=== PATIENT | male | born 1940 | race Caucasian/White ===

== ENCOUNTER 2018-05-10 07:53 | Inpatient (IN) | payer OTHER ==
--- OUTSIDE RECORDS SUMMARY | 2018-05-10 07:57 | XMS REPORT ---
:1940 Author Organization [employer] Care Team Providers Name Role Phone MejiaAroldo Provider Role Unavailable Allergies, Adverse Reactions, Alerts Substance Reaction Event Type Iodine Info Not Available Drug Allergy WHEAT Info Not Available Non Drug Allergy GLUTEN Info Not Available Non Drug Allergy Problems Problem Type Condition Code Onset Dates Condition Status Problem Pain in joint of right knee M25.561 Active Problem Right sided sciatica M54.31 Active Assessment Pain in joint of right knee M25.561 Active Assessment Right sided sciatica M54.31 Active Medications Medication Code System Code Instructions Start Date End Date Status Dosage Aspir-81 [facility] [id number] Active not defined -26 Results No Known Results Summary Purpose eClinicalWyldfire Submission
--- OUTSIDE RECORDS SUMMARY | 2018-05-10 07:57 | XMS REPORT | Clinical Summary ---
:1940 Author Organization [facility] Address [address] [place] [address] Care Team Providers Name Role Phone John Worrell MD Primary Care Provider Allergies Active Allergy Reactions Severity Noted Date Comments Iodine Hives 04/16/2018 Medications Medication Sig Dispensed Refills Start Date End Date Status aspirin (ECOTRIN) 81 Take 81 mg by 0 Active MG enteric coated mouth daily. tablet L-GLUTAMINE ORAL Take by mouth. 0 Active enzymes,digestive Take by mouth. 0 Active (ENZYME DIGEST ORAL) cetirizine (ZyrTEC) 10 Take 10 mg by 0 Active MG tablet mouth daily as needed. tamsulosin (FLOMAX) Take 1 capsule 90 capsule 3 04/16/2018 Active 0.4 mg capsule (0.4 mg total) by mouth daily. multivitamin with Take 1 tablet by 0 Active minerals tablet mouth daily. Active Problems Problem Noted Date History of kidney stones 04/16/2018 Encounters Date Type Specialty Care Team Description 05/07/2018 Anesthesia Event Urology King Wolf APRN 05/07/2018 Pre-Admit Testing Pre-Admission Mate[facility] Pre-op testing Appointment Testing MD Katrin (Primary Dx) 05/07/2018 Procedure visit Urology RON Galindo with obstruction/lower urinary tract symptoms (Primary Dx); MD Katrin H/O urethral stricture 05/07/2018 Hospital Encounter Radiology Maged Galindo cardiovascular MD Katrin exam 05/07/2018 Transcribe Orders Access Maged Galindo cardiovascular MD Katrin exam (Primary Dx) 05/04/2018 Telephone Urology Katrin Galindo MD 04/16/2018 Office Visit Urology Mateo H/O urethral stricture (Primary Dx) ; MD Katrin 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 Never 04/16/2018 How many drinks containing alcohol do you have on a typical Not asked day when you are drinking? How often do you have six or more drinks on one occasion? Not asked Sex Assigned at Date Recorded Not on file Job Start Date Occupation Industry Not on file Not on file Not on file Travel History Travel Start Travel End No recent travel history available. Last Filed Vital Signs Vital Sign Reading Time Taken Blood Pressure 175/81 05/07/2018 4:54 PM CDT Pulse 73 05/07/2018 4:54 PM CDT Temperature 35.9 C (96.7 F) 05/07/2018 4:54 PM CDT Respiratory Rate 20 05/07/2018 4:54 PM CDT Oxygen Saturation 98% 05/07/2018 4:54 PM CDT Inhaled Oxygen Concentration - - Weight 80.2 kg (176 lb 14.4 oz) 05/07/2018 4:54 PM CDT Height 170.2 cm (5' 7") 05/07/2018 4:54 PM CDT Body Mass Index 27.71 05/07/2018 4:54 PM CDT Plan of Treatment Health Maintenance Due Date Last Done Comments SHINGLES VACCINES (#1) 01/12/1988 65+ PNEUMOCOCCAL VACCINE (1 of 2 - PCV13) 2003 PNEUMOCOCCAL POLYSACCHARIDE VACCINE AGE 65 AND OVER 2003 INFLUENZA VACCINE 09/20/2017 Procedures Procedure Name Priority Date/Time Associated Diagnosis Comments XR CHEST 2 VW Routine 05/07/2018 5:54 Preop cardiovascular Results for this PM CDT exam procedure are in the results section. ECG PRE/POST OP Routine 05/07/2018 5:32 Pre-op testing Results for this PM CDT procedure are in the results section. ESTIMATED GFR Routine 05/07/2018 5:15 Results for this PM CDT procedure are in the results section. COMPREHENSIVE Routine 05/07/2018 5:15 Pre-op testing Results for this METABOLIC PANEL PM CDT procedure are in the results section. CBC HEMOGRAM Routine 05/07/2018 5:15 Pre-op testing Results for this PM CDT procedure are in the results section. PROTHROMBIN TIME WITH Routine 05/07/2018 5:15 Pre-op testing Results for this INR PM CDT procedure are in the results section. PARTIAL THROMBOPLASTIN Routine 05/07/2018 5:15 Pre-op testing Results for this TIME (PTT) PM CDT procedure are in the results section. POC URINALYSIS Routine 05/07/2018 1:30 BPH with Results for this DIPSTICK PM CDT obstruction/lower procedure are in urinary tract the results symptoms section. POC URINALYSIS Routine 04/16/2018 10:39 H/O urethral Results for this DIPSTICK AM CERTIFIED PEER SPECIALIST stricture procedure are in the results section. [id number] Routine 04/16/2018 10:39 H/O urethral Results for this AM CERTIFIED PEER SPECIALIST stricture procedure are in the results section. after 05/09/2017 Results XR Chest 2 Vw (05/07/2018 5:54 PM CDT) Narrative Performed At [facility]AMIN[facility] CLINICAL [facility]:Z01.810 Encounter for preprocedural cardiovascular examination, PREOP COMPARISON:None. TECHNIQUE: Frontal and lateral views of the chest obtained. IMPRESSION: Patient is status-post median sternotomy. Heart is normal in size, and there is atherosclerosis of the aorta. Foci of linear scarring in the lung bases. Lungs are otherwise clear. No pleural effusion or pneumothorax. Degenerative changes in the spine and chronic bilateral rib fractures. [id number] Procedure Note Hm Interface, Radiology Results Incoming - 05/07/2018 6:09 PM CDT EXAMINATION: XR CHEST 2 VW CLINICAL HISTORY: Z01.810 Encounter for preprocedural cardiovascular examination, PREOP COMPARISON: None. TECHNIQUE: Frontal and lateral views of the chest obtained. IMPRESSION: Patient is status-post median sternotomy. Heart is normal in size, and there is atherosclerosis of the aorta. Foci of linear scarring in the lung bases. Lungs are otherwise clear. No pleural effusion or pneumothorax. Degenerative changes in the spine and chronic bilateral rib fractures. [id number] Performing Organization Address City/State/Zipcode Phone Number [facility] [address] [place] [address] ECG Pre/Post Op (05/07/2018 5:32 PM CDT) Ventricular rate 68 [facility] Atrial rate 68 [facility] UT interval 154 [facility] QRSD interval 154 [facility] QT interval 450 [facility] QTC interval 478 [facility] P axis 1 23 [facility] QRS axis 1 -51 [facility] T wave axis -10 [facility] EKG impression Normal sinus rhythm-Right bundle branch block-Left anterior fascicular block-^^^ Bifascicular block ^^^-Voltage criteria for left ventricular hypertrophy-Inferior infarct , age undetermined-Anterolateral infarct , age undetermined-Abnormal ECG-No [facility] previous ECGs available-Electronically Signed By Loco Carrington MD ([id number]) on 05/08 5:54:42 PM Narrative Performed At Performing Organization Address City/[facility] Phone Number [facility] [address] [place] [phone] Estimated GFR (05/07/2018 5:15 PM CDT) Estimated GFR 60 mL/min/1.73 m2 [facility] Comment: HOSPITAL CatergoryUnitsInterpretation G1 >=90 Normal or high G2 60-89Mildly decreased K2p80-85Lmzmzh to moderately decreased K9m08-16Kgtsxwhaah to severely decreased G4 15-29Severely decreased G5 <15Kidney failure The eGFR was calculated using the Chronic Kidney Disease Epidemiology Collaboration (CKD-EPI) equation. Interpretation is based on recommendations of the National Kidney Foundation-Kidney Disease Outcomes Quality Initiative (NKF-KDOQI) published in 2014. Specimen Plasma specimen Performing Organization Address City/[facility] Phone Number [facility] DEPARTMENT OF PATHOLOGY AND [address] [place] [phone] [address] Partial thromboplastin time, activated (05/07/2018 5:15 PM CDT) PTT 30.5 23.0 - 36.0 sec [facility] Comment: PTT therapeutic range for unfractionated heparin is 61.0-112.0 seconds which corresponds to Anti-Xa 0.3-0.7 U/ml. Specimen Blood Performing Organization Address City/[facility]/Zipcode Phone Number [facility] DEPARTMENT OF PATHOLOGY AND [address] [place] [phone] [address] Prothrombin time with INR (05/07/2018 5:15 PM CDT) Prothrombin time 12.4 11.5 - 14.5 sec [facility] INR 1.0 [facility] Comment: HOSPITAL The International Normalized Ratio (INR) is a therapeutic monitoring tool for patients who are stable on oral anticoagulant therapy. An INR of 2.0-3.0 is suggested for deep vein thrombosis/pulmonary embolism. Specimen Blood Performing Organization Address City/[facility] Phone Number [facility] DEPARTMENT OF PATHOLOGY AND [address] [place] [address] CBC hemogram (05/07/2018 5:15 PM CDT) WBC 12.51 (H) 4.50 - 11.00 k/uL [facility] RBC 5.07 4.40 - 6.00 m/uL [facility] HGB 16.2 14.0 - 18.0 g/dL [facility] HCT 50.1 41.0 - 51.0 % [facility] MCV 98.8 82.0 - 100.0 fL [facility] MCH 32.0 27.0 - 34.0 pg [facility] MCHC 32.3 31.0 - 37.0 g/dL [facility] RDW - SD 49.0 37.0 - 55.0 fL [facility] MPV 10.2 8.8 - 13.2 fL [facility] Platelet count 343 150 - 400 k/uL [facility] Nucleated RBC 0.00 /100 WBC [facility] Specimen Blood Performing Organization Address City/[facility] Phone Number [facility] DEPARTMENT OF PATHOLOGY AND [address] [place] [phone] Comprehensive metabolic panel (05/07/2018 5:15 PM CDT) Sodium 141 135 - 148 mEq/L [facility] Potassium 4.3 3.5 - 5.0 mEq/L [facility] Chloride 100 98 - 112 mEq/L [facility] CO2 25 24 - 31 mEq/L [facility] Anion gap 16@ANIO (H) 7 - 15 mEq/L [facility] BUN 17 8 - 23 mg/dL [facility] Creatinine 1.15 0.70 - 1.20 mg/dL [facility] Glucose 142 (H) 65 - 99 mg/dL [facility] Calcium 9.5 8.8 - 10.2 mg/dL [facility] Protein 7.7 6.3 - 8.3 g/dL [facility] Comment: HOSPITAL Willis 4.6-7.0 g/dL 1 week 4.4-7.6 g/dL 7 months-1year5.1-7.3 g/dL 1-2 years5.6-7.5 g/dL >3 years6.0-8.0 g/dL 18-150 6.3-8.3 g/dL Albumin 3.9 3.5 - 5.0 g/dL [facility] A/G ratio 1.0 0.7 - 3.8 [facility] Alkaline phosphatase 192 (H) 40 - 129 U/L [facility] AST 364 (H) 10 - 50 U/L [facility] ALT 198 (H) 5 - 50 U/L [facility] Total bilirubin 1.2 0.0 - 1.2 mg/dL [facility] Specimen Plasma specimen Performing Organization Address City/State/Zipcode Phone Number [facility] DEPARTMENT OF PATHOLOGY AND [address] [place] [phone] [facility] [address] [address] POC urinalysis dipstick (05/07/2018 1:30 PM CDT)Only the most recent of2 resultswithin the time period is included. Color urine, POC Yellow Clarity urine, POC Clear Glucose urine, POC Negative Negative Bilirubin urine, POC Negative Negative Ketones urine, POC Negative Negative Specific gravity urine, POC 1.015 1.005 - 1.030 Blood urine, POC Trace (A) Negative pH urine, POC 7.5 5.0, 5.5, 6.0, 6.5, 7.0, 7.5, 8.0, 8.5 Protein urine, POC Negative Negative Urobilinogen urine, POC <2.0 <2.0 Nitrite urine, POC Negative Negative Leukocyte esterase urine, POC Trace (A) Negative Specimen Urine POC BLADDER SCAN/PVR (04/16/2018 10:39 AM CERTIFIED PEER SPECIALIST) Volume 16mlComment: pvr Specimen Urine after 05/09/2017 Insurance Payer Benefit Plan / Group Subscriber ID Type Phone Address AETNA MEDICARE AETNA MEDICARE HMO/PPO [facility] xxxxxxxx HMO ([place]) [place] [address] Advance Directives Patient has advance care planning documents on file. For more information, please contact:Kennedy [phone] [place] [address]
--- NOTE | 2018-05-10 08:43 | RAD REPORT ---
EXAM DESCRIPTION: RAD - Chest Single View - 05/10/2018 8:34 am CLINICAL HISTORY: weakness Chest pain. COMPARISON: Chest Pa And Lat (2 Views) dated 02/12/2016; CHEST SINGLE VIEW dated 07/31/2012 FINDINGS: Portable technique limits examination quality. The lungs are grossly clear. Small left pleural effusion likely present. Cardiac size is upper limit normal with sternotomy wires present.
[2018-05-10 08:53] LABS: Absolute Lymphocytes (CBC) 0.8 K/uL (0.7-4.9); Absolute Neutrophil 22.5 K/uL (1.8-8.0); Basophils % 0.3 % (0-1.3); Hematocrit 44.6 % (39.6-49.0); Lymphocytes % 3.1 % (15.3-44.8); MPV 9.3 fL (7.6-11.3); RBC Red Blood Cell Count 4.63 M/uL (4.33-5.43)
--- NOTE | 2018-05-10 09:03 | RAD REPORT ---
EXAM DESCRIPTION: RAD - Abdomen 1 View (KUB) - 05/10/2018 8:56 am CLINICAL HISTORY: Gas bubble Pain COMPARISON: No comparisons FINDINGS: The bowel gas pattern is non-obstructive. No evidence of free air or pneumatosis. No suspi cious calcifications. No significant bony findings. IMPRESSION: Negative examination.
[2018-05-10 09:04] LABS: Protime INR 1.15
[2018-05-10 09:06] LABS: ALT/SGPT 258 U/L (12-78); AST/SGOT 85 U/L (15-37); Albumin 3.1 g/dL (3.4-5.0); Alkaline Phosphatase 193 U/L (45-117); BUN Blood Urea Nitrogen 14 mg/dL (7-18); Bicarbonate 24 mmol/L (21-32); Bilirubin Direct 0.3 mg/dL (0-0.2); Bilirubin Total 0.9 mg/dL (0.2-1.0); Glucose Level 124 mg/dL (74-106); NT PRO-BNP 1410 pg/mL (<450); Potassium 4.1 mmol/L (3.5-5.1); Protein, Total 7.4 g/dL (6.4-8.2); Sodium Level 136 mmol/L (136-145); Troponin (Emerg Dept Use Only) < 0.02 ng/mL (0.0-0.045)
[2018-05-10 09:36] LABS: Blood Morphology Comment NOT SEEN (NOT SEEN); Platelet Estimate ADEQ; Urine White Blood Cell Casts OK
[2018-05-10] MEDS ORDERED: ONDANSETRON 4 MG/2 ML VIAL ONE (10:14)
[2018-05-10] MEDS ORDERED: PIPER/TAZO/NS 3.375gm 3.375 GM/100 ML BAG ONE (10:14)
[2018-05-10] MEDS ORDERED: MORPHINE 2 MG/ML SYR ONE ×2 (10:14→13:05)
--- NOTE | 2018-05-10 10:34 | RAD REPORT ---
EXAM DESCRIPTION: CT - Abdomen Pelvis Wo Contrast - 05/10/2018 10:22 am CLINICAL HISTORY: Abdominal pain, epigastric pain, weakness, vomiting COMPARISON: CT January 2008 TECHNIQUE: Axial [address] imaging of the abdomen and pelvis was performed without IV contrast. No IV contrast was given because of allergy, abnormal renal function, patient refusal or physician re quest. Oral contrast was given. All CT scans are performed using dose optimization technique as appropriate and may include automated exposure control or mA/KV adjustment according to patient size. FINDINGS: No suspicious findings in the lung bases. Scarring changes are present. No cardiomegaly or pericardial effusion. The liver and spleen show no new or suspicious findings for a noncontrast study. Gallbladder is diste nded. Gallstones can be occult on CT imaging. No biliary tree dilatation. No pancreatic mass identifi ed. There is trace amount of stranding in the peripancreatic fat. A mild pancreatitis would be a cons ideration in this patient with epigastric pain. No hydronephrosis or suspicious renal mass. Nonspecific perinephric stranding is present not regarded as significant. No significant adrenal finding. Isodense renal masses and pyelonephritis cannot be e xcluded in the absence of IV contrast. Partially filled urinary bladder shows no suspicious finding. Gastric assessment is limited given the absence of IV and oral contrast. No gross gastric abnormality identifiable. Moderate stool volume is present in the colon. There is no appendicitis. Diverticulosi s present without diverticulitis. No acute GI process seen. No free air, free fluid or inflammatory s tranding. No hernia, mass or bulky lymphadenopathy. Disc and bony degenerative changes are present without pathologic change. Dense arterial tree calcifi cations are present. IMPRESSION: Minimal stranding is seen in the peripancreatic fat. Correlation is needed with any clin ical findings or laboratory findings for mild pancreatitis. No pancreatic mass. Distended gallbladder without biliary tree dilatation. Gallstones can be occult. Limited assessment of the stomach. No gross abnormality seen. Full assessment is limited is the absence of IV contrast.
--- NOTE | 2018-05-10 10:35 | RAD REPORT ---
EXAM DESCRIPTION: CT - Head Brain Wo Cont - 05/10/2018 10:25 am CLINICAL HISTORY: Syncope, fall, head trauma COMPARISON: None. TECHNIQUE: Axial 5 mm thick images of the head were obtained without IV contrast. All CT scans are performed using dose optimization technique as appropriate and may include automated exposure control or mA/KV adjustment according to patient size. FINDINGS: No intracranial hemorrhage, mass, edema or shift of mid-line structures. No acute infarcti on changes seen. Atrophy and chronic ischemic changes are present. Ventricles are in proportion to vo lume loss. Physiologic and arterial calcifications are present. Mastoid air cells and visualized portions of the paranasal sinuses are clear. No acute bony findings. IMPRESSION: Negative non-contrast CT head examination for acute finding. Atrophy and chronic ischem ic changes are present.
--- NOTE | 2018-05-10 10:44 | EKG ---
Test Date: 2018-05-10 Test Time: 08:03:27 Vocational Services Specialist: PAMELA MEASUREMENT RESULTS: Intervals: Rate: 85 ME: 142 QRSD: 128 QT: 406 QTc: 483 Cecil: P: 61 ME: 142 QRS: -49 T: 67 INTERPRETIVE STATEMENTS: Normal sinus rhythm Right bundle branch block Left anterior fascicular block Bifascicular block Voltage criteria for left ventricular hypertrophy Inferior infarct, age undetermined Anterolateral infarct, age undetermined Abnormal ECG Compared to ECG 08/01/2012 10:57:18 Right bundle-branch block now present Left anterior fascicular block now present Bifascicular block now present Left-axis deviation no longer present Early repolarization no longer present Myocardial infarct finding still present Electronically Signed On 05-10-18 10:43:21 CDT by Andre Duran
[2018-05-10] MEDS ORDERED: KETOROLAC 30 MG/ML INJ ONE (11:29)
[2018-05-10] MEDS ORDERED: metroNIDAZOLE 500 MG TABLET ONE (11:29)
--- NOTE | 2018-05-10 12:12 | ER ---
Nurse's Notes [facility] Name: Carmelo Davis Age: 78 yrs Sex: Male : 1940 Arrival Date: 05/10/2018 Time: 08:03 Bed 5 Private MD: Diagnosis: Abdominal and pelvic pain;Acute pancreatitis, unspecified Presentation: 05/10 08:04 Presenting complaint: Patient states: epigastric pain, feels like a gas bubble, and ch weakness for the past 5 days. states "flu like symptoms". denies congestion, cough, nasal drainage. reports body aches, lower back, vomiting, and states today he called 911 because he was to weak to get out of his bath tub. states this happened in February but only lasted 5 days, today feeling worse. Transition of care: patient was not received from another setting of care. Onset of symptoms was May 05, 2018. Risk Assessment: Do you want to hurt yourself or someone else? Patient reports no desire to harm self or others. Initial Sepsis Screen: Does the patient meet any 2 criteria? No. Patient's initial sepsis screen is negative. Does the patient have a suspected source of infection? No. Patient's initial sepsis screen is negative. Care prior to arrival: None. 08:04 Method Of Arrival: EMS: [facility] 08:04 Acuity: RAVEN 3 Triage Assessment: 08:10 The onset of the patients symptoms was more than six hours ago. The onset of the patients symptoms was May 05, 2018 at 08:00. General: Appears in no apparent distress. comfortable, Behavior is calm, cooperative, appropriate for age. Pain: Complains of pain in epigastric area, right upper quadrant and left upper quadrant Pain currently is 10 out of 10 on a pain scale. Neuro: Level of Consciousness is awake, alert, obeys commands, Oriented to person, place, time, situation, Plastering Supervisor are equal bilaterally Moves all extremities. Weakness Speech is normal, Facial symmetry appears normal, Facial symmetry: tongue is midline, Reports weakness generalized weakness, states he could not get out of bed today. Cardiovascular: Denies chest pain. Respiratory: Airway is patent Respiratory effort is even, unlabored, Breath sounds are clear. GI: Bowel sounds present X 4 quads. Reports upper abdominal pain, bloating, gaseousness, nausea, vomiting. : No signs and/or symptoms were reported regarding the genitourinary system. Derm: Skin is intact, Skin is pale, Skin temperature is warm. Musculoskeletal: Reports feeling generalized weakness. Stroke Activation: Symptom onset > 6 hours Physician: Stroke Attending; Name: ; Notified At: ; Arrived At: Physician: Chief Stroke Resident; Name: ; Notified At: ; Arrived At: Physician: Stroke Resident; Name: ; Notified At: ; Arrived At: Physician: ED Attending; Name: ; Notified At: ; Arrived At: Physician: ED Resident; Name: ; Notified At: ; Arrived At: 08:04 NA ch Historical: - Allergies: 08:10 Iodine; ch 08:10 Gluten Protein; ch 08:10 CORN CONTAINING PRODUCTS; ch 08:10 Milk/dairy products; ch 08:10 Wheat/glutens; ch - Home Meds: 08:10 aspirin 81 mg Oral chew 1 tab once daily [Active]; ch - PMHx: 08:10 Myocardial infarction; x2; ch - PSHx: 08:10 cardiac stents, then single bypass; ch - Immunization history:: Adult Immunizations up to date, Flu vaccine is up to date. - Social history:: Smoking status: Patient/guardian denies using tobacco, Patient/guardian denies using alcohol, street drugs. - Ebola Screening: : Patient negative for fever greater than or equal to 101.5 degrees Fahrenheit, and additional compatible Ebola Virus Disease symptoms Patient denies exposure to infectious person Patient denies travel to an Ebola-affected area in the 21 days before illness onset No symptoms or risks identified at this time. Screenin:15 Abuse screen: Denies threats or abuse. Denies injuries from another. Nutritional ch screening: No deficits noted. Tuberculosis screening: No symptoms or risk factors identified. Fall Risk None identified. Assessment: 08:15 Reassessment: Patient appears in no apparent distress at this time. Patient and/or ch family updated on plan of care and expected duration. Pain level reassessed. Patient is alert, oriented x 3, equal unlabored respirations, skin warm/dry/pink. 08:25 Reassessment: XRAY at bedside obtaining image. ss 08:55 Reassessment: Patient appears in no apparent distress at this time. No changes from previously documented assessment. Patient and/or family updated on plan of care and expected duration. Pain level reassessed. Patient is alert, oriented x 3, equal unlabored respirations, skin warm/dry/pink. 09:18 Reassessment: Patient appears in no apparent distress at this time. pt states he does ch not need to urinate right now. pt verb understanding of wait for results. pt states he does not need to urinate right now. will attempt to get a sample in a few min. 09:50 Reassessment: Patient appears in no apparent distress at this time. No changes from previously documented assessment. Patient and/or family updated on plan of care and expected duration. Pain level reassessed. Patient is alert, oriented x 3, equal unlabored respirations, skin warm/dry/pink. pt requests pain medication, erp notified. 10:50 Reassessment: Patient appears in no apparent distress at this time. Patient and/or ch family updated on plan of care and expected duration. Pain level reassessed. Patient is alert, oriented x 3, equal unlabored respirations, skin warm/dry/pink. Patient states feeling better. 11:52 Reassessment: Patient appears in no apparent distress at this time. Patient and/or ch family updated on plan of care and expected duration. Pain level reassessed. Patient is alert, oriented x 3, equal unlabored respirations, skin warm/dry/pink. pt awaiting results, no s/s of distress. 12:54 Reassessment: Patient appears in no apparent distress at this time. Patient and/or ch family updated on plan of care and expected duration. Pain level reassessed. Patient is alert, oriented x 3, equal unlabored respirations, skin warm/dry/pink. pt states he is having more pain, pt verb understanding of admission. erp notified of pt wanting his results, and new orders obtained for pain medication. 13:30 Reassessment: pt remains off the unit in radiology prior to admission to room 407. Vital Signs: 08:14 BP 131 / 71; Pulse 98; Resp 22; Temp 98.6; Pulse Ox 96% on R/A; Weight 77.11 kg; Height 5 ft. 7 in. (170.18 cm); Pain 10/10; 08:55 BP 138 / 74; Pulse 86; Resp 16; Pulse Ox 99% on R/A; Pain 9/10; ch 11:09 BP 124 / 68; Pulse 100; Resp 21; Temp 99; Pulse Ox 95% on R/A; Pain 7/10; ch 11:52 BP 139 / 76; Pulse 92; Resp 22; Pulse Ox 95% on R/A; Pain 6/10; ch 12:54 BP 125 / 64; Pulse 96; Resp 21; Pulse Ox 96% on R/A; Pain 8/10; ch 13:00 BP 125 / 64; Pulse 93; Resp 18; Temp 99.4(TE); Pulse Ox 95% on R/A; Pain 9/10; sg 08:14 Body Mass Index 26.63 (77.11 kg, 170.18 cm) ED Course: 08:03 Patient arrived in ED. ch 08:04 Nicko Ruiz MD is Attending Physician. kdr 08:08 Triage completed. ch 08:10 Inserted saline lock: 20 gauge in right antecubital area, using aseptic technique. ss Blood collected. 08:14 Arm band placed on left wrist. Patient placed in an exam room, on a stretcher, on pulse oximetry. 08:15 No apparent distress. ch 08:15 Patient has correct armband on for positive identification. Bed in low position. Call light in reach. Side rails up X 1. Pulse ox on. NIBP on. Warm blanket given. 08:15 No provider procedures requiring assistance completed. ch 08:33 X-ray completed. Portable x-ray completed in exam room. Patient tolerated procedure sw well. 08:34 XRAY Chest (1 view) In Process Unspecified. EDMS 08:54 X-ray completed. Portable x-ray completed in exam room. Patient tolerated procedure jb2 well. Note: . 08:54 Estelita Abdullahi, RN is Primary Nurse. ch 08:56 Abdomen 1 View (KUB) XRAY In Process Unspecified. EDMS 09:15 No apparent distress. Appears to be sleeping. ch 10:17 CT completed. Patient tolerated procedure well. Patient moved to CT via stretcher. sj Patient moved back from CT. 10:23 Abdomen In Process Unspecified. EDMS 10:27 Head Brain Wo Cont In Process Unspecified. EDMS 10:40 Missed attempt(s): 20 gauge in left antecubital area. Bleeding controlled, band aid dh3 applied, catheter tip intact. 10:45 First set of blood cultures drawn by wi. Inserted saline lock: 22 gauge in left hand, dh3 using aseptic technique. Blood collected. 12:10 John Worrell MD is Hospitalizing Provider. kdr 12:54 Report given to Amor. 12:54 Patient admitted, IV remains in place. ch 12:59 Amor Rosas, RN is Primary Nurse. sg 13:28 Patient moved to MRI via wheelchair. 14:00 Repeat lab(s) drawn. by wi, sent to lab. LAC. sg Administered Medications: 10:10 Drug: morphine 2 mg Route: IVP; Site: right antecubital; ch 11:57 Follow up: Response: No adverse reaction ch 11:08 Drug: Zosyn 3.375 grams Route: IVPB; Infused Over: 60 mins; Site: left hand; ch 11:56 Follow up: IV Status: Completed infusion; IV Intake: 100ml ch 11:56 Drug: Flagyl 500 mg Route: PO; ch 11:57 Follow up: Response: No adverse reaction ch 12:50 Drug: morphine 2 mg Route: IVP; Site: right antecubital; sg 13:30 Follow up: Response: No adverse reaction; Pain is decreased sg 14:31 Not Given (Patient Refused): Zofran 4 mg IVP once; over 2 minutes sg Intake: 11:56 IV: 100ml; Total: 100ml. Outcome: 12:11 Decision to Hospitalize by Provider. kdr 14:33 Admitted to Med/surg accompanied by tech, via wheelchair, room 407, with chart, Report sg called to Edie ELIAS 14:33 Condition: stable 14:33 Instructed on the need for admit, safety practices, Demonstrated understanding of instructions. 14:36 Patient left the ED. snw Signatures: Dispatcher [employer] EDMS Estelita Abdullahi, RN RN Amor Rosas, RN RN Nicko Ruiz MD MD kdr Therrien, Shelly, [employer]IL[employer] PLANT AND FIELD OPERATOR-C [employer] FIELD OPERATOR-Csnw Dave Landa Lorena lc Jones, Susan sj Smirch, Shelby, RN RN Mindy Mccoy Deanna [facility]
--- NOTE | 2018-05-10 12:12 | EDPHYS ---
Physician Documentation [facility] Name: Carmelo Davis Age: 78 yrs Sex: Male : 1940 Arrival Date: 05/10/2018 Time: 08:03 Bed 5 Private MD: ED Physician Nicko Ruiz HPI: 05/10 08:41 This 78 yrs old Male presents to ER via EMS with complaints of Weakness. kdr 08:41 The patient states that he has been feeling weak and that he may have the flu. States kdr that he also has a "gas" bubble in his upper abdomen. He has no c/o pain aside from general myalgias from feeling like he has the flu. He states that he had similar symptoms in February with the "flu" feeling and the epigastric gas bubble.. Onset: The symptoms/episode began/occurred gradually, 2 day(s) ago. Severity of symptoms: At their worst the symptoms were mild in the emergency department the symptoms are unchanged. The patient has experienced similar episodes in the past, a few times. The patient has not recently seen a physician. Historical: - Allergies: 08:10 Iodine; ch 08:10 Gluten Protein; ch 08:10 CORN CONTAINING PRODUCTS; ch 08:10 Milk/dairy products; ch 08:10 Wheat/glutens; ch - Home Meds: 08:10 aspirin 81 mg Oral chew 1 tab once daily [Active]; ch - PMHx: 08:10 Myocardial infarction; x2; ch - PSHx: 08:10 cardiac stents, then single bypass; ch - Immunization history:: Adult Immunizations up to date, Flu vaccine is up to date. - Social history:: Smoking status: Patient/guardian denies using tobacco, Patient/guardian denies using alcohol, street drugs. - Ebola Screening: : Patient negative for fever greater than or equal to 101.5 degrees Fahrenheit, and additional compatible Ebola Virus Disease symptoms Patient denies exposure to infectious person Patient denies travel to an Ebola-affected area in the 21 days before illness onset No symptoms or risks identified at this time. ROS: 08:41 Constitutional: Negative for fever and weight loss he does report chills yesterday kdr Eyes: Negative for injury, pain, redness, and discharge, ENT: Negative for injury, pain, and discharge, Neck: Negative for injury, pain, and swelling, Cardiovascular: Negative for chest pain, palpitations, and edema, Respiratory: Negative for shortness of breath, cough, wheezing, and pleuritic chest pain, Back: Negative for injury and pain, : Negative for injury, bleeding, discharge, and swelling, MS/Extremity: Negative for injury and deformity, Skin: Negative for injury, rash, and discoloration, Neuro: Negative for headache, weakness, numbness, tingling, and seizure activity. Psych: Negative for depression, anxiety, suicide ideation, homicidal ideation, and hallucinations, Allergy/Immunology: Negative for hives, rash, and allergies, Endocrine: Negative for neck swelling, polydipsia, polyuria, polyphagia, and marked weight changes, Hematologic/Lymphatic: Negative for swollen nodes, abnormal bleeding, and unusual bruising. 08:41 Abdomen/GI: Positive for abdominal distension, Epigastric gas bubble. Exam: 08:41 Constitutional: This is a well developed, well nourished patient who is awake, alert, kdr and in no acute distress. Head/Face: Normocephalic, atraumatic. Eyes: Pupils equal round and reactive to light, extra-ocular motions intact. Lids and lashes normal. Conjunctiva and sclera are non-icteric and not injected. Cornea within normal limits. Periorbital areas with no swelling, redness, or edema. Neck: Trachea midline, no thyromegaly or masses palpated, and no cervical lymphadenopathy. Supple, full range of motion without nuchal rigidity, or vertebral point tenderness. No Meningismus. Chest/axilla: Normal chest wall appearance and motion. Nontender with no deformity. No lesions are appreciated. Cardiovascular: Regular rate and rhythm with a normal S1 and S2. No gallops, murmurs, or rubs. Normal PMI, no JVD. No pulse deficits. Respiratory: Lungs have equal breath sounds bilaterally, clear to auscultation and percussion. No rales, rhonchi or wheezes noted. No increased work of breathing, no retractions or nasal flaring. Abdomen/GI: Soft, non-tender, with normal bowel sounds. No distension or tympany. No guarding or rebound. No evidence of tenderness throughout. Back: No spinal tenderness. No costovertebral tenderness. Full range of motion. Skin: Warm, dry with normal turgor. Normal color with no rashes, no lesions, and no evidence of cellulitis. MS/ Extremity: Pulses equal, no cyanosis. Neurovascular intact. Full, normal range of motion. Neuro: Awake and alert, GCS 15, oriented to person, place, time, and situation. Cranial nerves II-XII grossly intact. Motor strength 5/5 in all extremities. Sensory grossly intact. Cerebellar exam normal. Normal gait. Psych: Awake, alert, with orientation to person, place and time. Behavior, mood, and affect are within normal limits. Vital Signs: 08:14 BP 131 / 71; Pulse 98; Resp 22; Temp 98.6; Pulse Ox 96% on R/A; Weight 77.11 kg; Height ch 5 ft. 7 in. (170.18 cm); Pain 10/10; 08:55 BP 138 / 74; Pulse 86; Resp 16; Pulse Ox 99% on R/A; Pain 9/10; ch 11:09 BP 124 / 68; Pulse 100; Resp 21; Temp 99; Pulse Ox 95% on R/A; Pain 7/10; ch 11:52 BP 139 / 76; Pulse 92; Resp 22; Pulse Ox 95% on R/A; Pain 6/10; ch 12:54 BP 125 / 64; Pulse 96; Resp 21; Pulse Ox 96% on R/A; Pain 8/10; ch 13:00 BP 125 / 64; Pulse 93; Resp 18; Temp 99.4(TE); Pulse Ox 95% on R/A; Pain 9/10; sg 08:14 Body Mass Index 26.63 (77.11 kg, 170.18 cm) ch MDM: 08:41 Data reviewed: vital signs, nurses notes, lab test result(s), radiologic studies. kdr Counseling: I had a detailed discussion with the patient and/or guardian regarding: the historical points, exam findings, and any diagnostic results supporting the discharge/admit diagnosis, lab results, radiology results, the need for outpatient follow up. 12:11 Patient medically screened. kdr 12:11 Physician consultation: Anthony Gallagher MD was called at 11:55, was contacted at 11:55, kdr Left message with the PA/Nurse. Admission orders: after a detailed discussion of the patient's condition and case, the admit orders are written by me. 05/10 08:16 Order name: Basic Metabolic Panel; Complete Time: 10:02 kdr 05/10 08:16 Order name: CBC with Diff; Complete Time: 10:02 kdr 05/10 08:16 Order name: LFT's; Complete Time: 10:02 kdr 05/10 08:16 Order name: Magnesium; Complete Time: 10:02 kdr 05/10 08:16 Order name: NT PRO-BNP; Complete Time: 10:02 kdr 05/10 08:16 Order name: PT-INR; Complete Time: 10: kdr 05/10 08:16 Order name: Troponin (emerg Dept Use Only); Complete Time: 10:02 kdr 05/10 08:16 Order name: Flu; Complete Time: 10:02 kdr 05/10 09:02 Order name: CBC Smear Scan; Complete Time: 10:02 EDMS 05/10 10:04 Order name: Procalcitonin; Complete Time: 11:34 kdr 05/10 10:04 Order name: Lactate; Complete Time: 11:42 kdr 05/10 10:04 Order name: Blood Culture Adult (2) kdr 05/10 12:24 Order name: Basic Metabolic Panel EDMS 05/10 12:24 Order name: Basic Metabolic Panel EDMS 05/10 08:16 Order name: XRAY Chest (1 view); Complete Time: 10:02 kdr 05/10 08:29 Order name: Abdomen 1 View (KUB) XRAY; Complete Time: 10:02 kdr 05/10 10:15 Order name: Abdomen ; Complete Time: 11:34 EDMS 05/10 10:22 Order name: Head Brain Wo Cont; Complete Time: 11:34 EDMS 05/10 12:24 Order name: CBC with Automated Diff EDMS 05/10 12:24 Order name: CBC with Automated Diff EDMS 05/10 12:24 Order name: Lipase EDMS 05/10 12:24 Order name: Lipase EDMS 05/10 12:24 Order name: Liver (Hepatic) Function EDMS 05/10 12:24 Order name: Liver (Hepatic) Function EDMS 05/10 14:09 Order name: MRI EDMS 05/10 08:16 Order name: EKG; Complete Time: 08:17 kdr 05/10 08:16 Order name: Cardiac monitoring; Complete Time: 08:34 kdr 05/10 08:16 Order name: EKG - Nurse/Tech; Complete Time: 08:34 kdr 05/10 08:16 Order name: IV Saline Lock; Complete Time: : [facility] 05/10 08:16 Order name: Labs collected and sent; Complete Time: [facility] 05/10 08:16 Order name: O2 Per Protocol; Complete Time: : [facility] 05/10 08:16 Order name: O2 Sat Monitoring; Complete Time: [facility] 05/10 12:24 Order name: NPO EDMS Administered Medications: 10:10 Drug: morphine 2 mg Route: IVP; Site: right antecubital; ch 11:57 Follow up: Response: No adverse reaction ch 11:08 Drug: Zosyn 3.375 grams Route: IVPB; Infused Over: 60 mins; Site: left hand; ch 11:56 Follow up: IV Status: Completed infusion; IV Intake: 100ml ch 11:56 Drug: Flagyl 500 mg Route: PO; ch 11:57 Follow up: Response: No adverse reaction ch 12:50 Drug: morphine 2 mg Route: IVP; Site: right antecubital; sg 13:30 Follow up: Response: No adverse reaction; Pain is decreased sg 14:31 Not Given (Patient Refused): Zofran 4 mg IVP once; over 2 minutes sg Disposition: 05/10/18 12:11 Hospitalization ordered by John Worrlel for Inpatient Admission. Preliminary diagnosis are Abdominal and pelvic pain, Acute pancreatitis, unspecified. - Bed requested for Telemetry/MedSurg (Inpatient). - Status is Inpatient Admission. snw - Condition is Fair. - Problem is new. - Symptoms have improved. UTI on Admission? No Signatures: Dispatcher [employer] EDNY Estelita Abdullahi, RN RN Amor Rosas RN RN Nicko Ruiz MD MD [facility] Ann Carvajal, FIRST ASSIST-C FIRST ASSIST-Csnw Dari Benoit, RN RN df Corrections: (The following items were deleted from the chart) 10:15 10:03 Abdomen Pelvis W Con+CT.RAD.BRZ ordered. EDNY EDNY 13:03 12:11 Hospitalization Ordered by John Worrell MD for Inpatient Admission. Preliminary df diagnosis is Abdominal and pelvic pain; Acute pancreatitis, unspecified. Bed requested for Telemetry/MedSurg (Inpatient). Status is Inpatient Admission. Condition is Fair. Problem is new. Symptoms have improved. UTI on Admission? No. kdr 14:36 13:03 05/10/2018 12:11 Hospitalization Ordered by John Worrell MD for Inpatient snw Admission. Preliminary diagnosis is Abdominal and pelvic pain; Acute pancreatitis, unspecified. Bed requested for Telemetry/MedSurg (Inpatient). Status is Inpatient Admission. Condition is Fair. Problem is new. Symptoms have improved. UTI on Admission? No. df
[2018-05-10] MEDS ORDERED: NA CHLORIDE 0.9% 1,000 ML IV SCH (13:00)
--- NOTE | 2018-05-10 14:08 | RAD REPORT ---
EXAM DESCRIPTION: MRI - Cholangiogram - 05/10/2018 1:46 pm CLINICAL HISTORY: acute pancreatitis Abdominal pain COMPARISON: No comparisons FINDINGS: Three-dimensional MRCP was performed using maximum intensity projection reconstruction on the same work station. No intrahepatic biliary tree dilatation is seen. The common bile duct is normal caliber without evide nce of retained stone, stricture or mass. The pancreatic duct is not pathologically dilated. The gallbladder is distended with multiple layering gallstones. Limited T2 sequences through the abdomen demonstrates no bulky adenopathy, significant free fluid or abscess. Benign right renal cyst. Trace edematous appearance to the pancreatic head region noted. IMPRESSION: Distended gallbladder containing multiple small stones. No significant biliary tree distention seen. Trace edema involving the pancreatic head.
[2018-05-10 14:53] VITALS: BMI 26.6
[2018-05-10] MEDS: D5 0.45 NS 1,000 ML IV SCH ×2 (15:19→21:00)
[2018-05-10 15:59] LABS: Amylase Level 65 U/L (25-115); Lipase 221 U/L (73-393)
[2018-05-10] MEDS: METRONIDAZOLE 500mg IVPB 500 MG/100 ML BAG IV SCH (17:19)
[2018-05-10] MEDS: CIPROFLOXACIN 400mg IV 400 MG/200 ML BAG IV SCH (22:44)
[2018-05-11] MEDS: METRONIDAZOLE 500mg IVPB 500 MG/100 ML BAG IV SCH ×5 (01:10→23:59)
[2018-05-11] MEDS: MORPHINE 4 MG/ML SYR IV PRN ×3 (04:35→13:33)
[2018-05-11] MEDS: D5 0.45 NS 1,000 ML IV SCH ×3 (04:36→20:15)
[2018-05-11 06:37] LABS: Absolute Lymphocytes (CBC) 1.3 K/uL (0.7-4.9); Absolute Monocytes 2.4 K/uL (0.1-1.3); Absolute Neutrophil 18.4 K/uL (1.8-8.0); Basophils % 0.3 % (0-1.3); Eosinophils % 0.6 % (0-4.4); Hematocrit 39.6 % (39.6-49.0); Lymphocytes % 5.8 % (15.3-44.8); MPV 9.5 fL (7.6-11.3); RBC Red Blood Cell Count 4.13 M/uL (4.33-5.43)
[2018-05-11 06:56] LABS: Albumin 2.5 g/dL (3.4-5.0); Bilirubin Direct 0.3 mg/dL (0-0.2); Bilirubin Total 0.8 mg/dL (0.2-1.0); Potassium 4.1 mmol/L (3.5-5.1); Protein, Total 6.4 g/dL (6.4-8.2)
[2018-05-11] MEDS: CIPROFLOXACIN 400mg IV 400 MG/200 ML BAG IV SCH ×2 (09:08→20:16)
--- NOTE | 2018-05-11 11:25 | PN ---
Date of Progress Note: 05/10/2018 The patient states he feels better tonight. However, he has not had any challenges orally, and is aw aiting a surgical evaluation, and the lipase. We had a discussion with a early childhood teacher because of his lipase is within limits and surgery can proceed. If it is markedly elevated, probably wiser t o wait. HR/MODL Voice ID: [id number] Report ID: [id number]
--- NOTE | 2018-05-11 12:19 | HP ---
Date of Admission: 05/10/2018 Entrance Complaint: Abdominal pain. History Of Present Illness: The patient presented to the emergency room complaining of mid epigastri c pain with discomfort, nausea, anorexia with few days progression. The patient has not had prior pr oblems as such. He was worked up in the emergency room. Past History: The patient has a long history of allergies, and has had some significant dietary cont rols, which he has done quite well for his age. No prior GI symptoms other than the fact when he dev iates from his diet. Family History: Noncontributory. Social History: Nonsmoker, nondrinker. Physical Examination: General: The patient is an obviously uncomfortable elderly male. Vital Signs: Stable. Head and Neck: Normocephalic. Pupils equal and react to light and accommodation. Fundi negative. Trachea midline. Thyroid not palpable. ENT: Negative. Chest: Clear to P and A. Cardiovascular: PMI in midclavicular line. Heart sounds normal. Peripheral pulses present and equa l bilaterally. Abdomen: Minimal tenderness in midepigastric area. No guarding, rebound, tenderness, or rigidity. Bowel sounds are hypoactive. Extremities: Slightly dehydrated. Good tone and movement bilaterally. Reflexes are physiologic. Rectal: Deferred. Impression: Abdominal pain, possible pancreatitis, and/or gallbladder disease. Plan: The patient will be admitted. A CAT scan did reveal multiple stones in the gallbladder and di stention of the gallbladder, obvious cause of his problem. The lab work also showed elevated LFTs, a waiting the pancreatic report. Surgery consult will be obtained. In the meantime, placed on IV flui ds and IV antibiotics. HR/MODL Voice ID: [id number]
--- NOTE | 2018-05-11 14:37 | P.CNS ---
Date of Consult: 05/11/18 PC: This 78-year-old male presents emergency room with severe abdominal pain for diagnosis and treatment. HPC: Patient noticed sudden onset of some right upper quadrant abdominal pain, just below his rib cage, more towards the midline. Describes the pain is severe. Going straight through to his back much like and iron bar being through him. Says at 1 point the pain was absolutely excruciating the scene showed he is supple little bit. PMH: Food allergies PSHx: Previous kidney stone, required extraction SOC: See listed allergies I have reviewed in SYS REVIEW: No cough, wheeze, shortness of breath. No chest pain or palpitations. Mild obstructive symptoms O/E awake alert vital signs are stable HEENT: Not jaundice Chest: Chest movement equal bilaterally ABD: Mild right upper quadrant tenderness LOCO: Intact DATA: This patient initially presented without had lipase, is back down to normal. Has documented gallstones and sludge IMPRESSION: Cholecystitis with cholelithiasis, possible hydrops PLAN: I will take him to the operating room for laparoscopic cholecystectomy with intraoperative cholangiogram. The risks of this procedure have been discussed. The possibility of bleeding, infection, injury to bile ducts blood vessels and intestines has been described. The possible need for an open and/ or further surgeries and procedures was discussed. He understands and wants us to proceed.
[2018-05-11] MEDS ORDERED: Ringers Lactate 1,000 ML IV ONE (16:08)
[2018-05-11] MEDS ORDERED: PROPOFOL 200 MG/20 ML VIAL IV ONE (16:24)
[2018-05-11] MEDS ORDERED: ROCURONIUM 50 MG/5 ML VIAL IV ONE (16:24)
[2018-05-11] MEDS ORDERED: LIDOCAINE 2% MPF 5 ML VIAL ONE (16:24)
[2018-05-11] MEDS ORDERED: FENTANYL CITR 100 MCG/2 ML ONE ×2 (16:25→17:54)
[2018-05-11] MEDS: BUPIVACAINE 0.5% PF 10 ML VIAL ONE ×2 (16:54→17:08)
[2018-05-11] MEDS ORDERED: KETOROLAC 30 MG/ML INJ ONE (17:19)
[2018-05-11] MEDS ORDERED: DEXAMETHASONE 10 MG/ML VIAL ONE (17:19)
[2018-05-11] MEDS ORDERED: GLYCOPYRROLATE 0.2 MG/ML SYR ONE (17:29)
[2018-05-11] MEDS ORDERED: NEOSTIGMINE 1 MG/ML -10 ML VIAL ONE ×2 (17:29→17:31)
--- NOTE | 2018-05-11 18:16 | P.OP ---
Preoperative diagnosis: Cystitis with cholelithiasis, pancreatitis Postoperative diagnosis: The same with hydrops of the gallbladder Primary procedure: Laparoscopic cholecystectomy Secondary procedure: Cholangiogram Anesthesia: General Estimated blood loss: Less than 10 cc Specimen: 1 gallbladder and content Operative Technique: The patient was brought to the operating room placed supine on the table. After the induction of adequate general endotracheal anesthesia, the area of the abdomen is prepped with a DuraPrep solution, and draped in the usual aseptic manner. A subumbilical incision was made. This brought down through the skin and subcutaneous tissue. The Visiport was used to enter the peritoneal cavity and created pneumoperitoneum to approximately 12 mm of mercury. Under direct vision a 5 mm trocar was placed in the upper midline, and 2 other 5 mm trocars on the right lateral side. The patient's head was then elevated and rolled towards the sinter machine operator's side. We could see a chronically inflamed gallbladder. There was a marked amount of adhesions to the serosal surface of the surrounding omentum. This was gently taken down using blunt sharp dissection as well as a judicious use electro cautery. The full-time that dissection however is about 15 min. We were finally able to dissect the peel off the lower portion of Chanda's pouch. At the curve as a came over to the cystic duct we could see that the Chanda's pouch and cystic duct there was markedly packed with stones. It was necessary to aspirate the gallbladder so that we could place the AE graspers on it. When it was aspirated was found with that we had white bile and a hydrops of the gallbladder.. A grasper was placed on the fundus of the gallbladder. Another 1 was placed down by Chanda's pouch. Applying lateral traction we were able to dissect and expose the cystic duct and artery. The artery was dealt with 1st. It was clipped and divided in the usual manner. A clip was then placed between the gallbladder and the cystic duct. An opening was made into the cystic duct. We attempted then to pass the cholangiocath into the cystic duct. There was a very prominent bowel structures to the cystic duct. On milking back the cystic duct we were finally able to pull some stones from the distal end. The catheter was then placed into the cystic duct. We did obtain a good cholangiogram with no evidence of any filling defects. The catheter was also passed directly down through the common bile duct into the duodenum and this went down easily with no obstruction. The catheter was then removed. Clips were now placed on the distal portion of the cystic duct. The cystic duct was then divided. The gallbladder was now dissected free from the liver bed, placed into an Endo-Catch, and brought out through the umbilical trocar site. The gallbladder fossa was inspected to ensure adequate hemostasis. It was irrigated with a saline solution and the irrigant aspirated from the peritoneal cavity. 0.25% Marcaine was aerosolized into the right upper quadrant and the gallbladder fossa. The anterior wall was blocked with a transabdominal preperitoneal injection of 5 cc of Marcaine. The umbilical trocar site was now approximated with an Endo Close and an absorbable sutures. The pneumoperitoneum was then collapsed, the suture tied, and melina applied to the skin. A further 0.25% Marcaine was injected around are incision sites. At the end of the procedure the patient was in a stable condition when sent to the recovery room. Needle sponge instrument count were correct. 1 specimen was sent for histopathology. Complications: None Transferred to: Recovery Room Condition: Good
[2018-05-11] MEDS ORDERED: HYDROCODONE/APAP 7.5/325 MG TAB PO PRN (18:19)
[2018-05-11] MEDS ORDERED: MORPHINE 4 MG/ML SYR IV PRN (18:19)
[2018-05-12] MEDS: D5 0.45 NS 1,000 ML IV SCH ×2 (04:12→13:00)
[2018-05-12] MEDS: METRONIDAZOLE 500mg IVPB 500 MG/100 ML BAG IV SCH ×3 (05:12→17:22)
[2018-05-12] MEDS: ONDANSETRON 4 MG/2 ML VIAL IV PRN (05:12)
[2018-05-12] MEDS: CIPROFLOXACIN 400mg IV 400 MG/200 ML BAG IV SCH ×2 (08:35→21:33)
--- NOTE | 2018-05-12 09:00 | RAD REPORT ---
EXAM DESCRIPTION: RAD - Fluoroscopy <1 Hour - 05/11/2018 9:22 pm CLINICAL HISTORY: Laparoscopic cholecystectomy FINDINGS: Eight fluoroscopic spot image is submitted. Fluoroscopy time 0.1 minute Cystic duct cannulated and contrast administered. Biliary tree is normal caliber. A vague filling defect is present within the region of the common hepatic duct which may represent an air bubble, incomplete opacification or stone. Exam form by Dr. Pino
[2018-05-12 10:13] LABS: Absolute Lymphocytes (CBC) 0.3 K/uL (0.7-4.9); Absolute Monocytes 0.5 K/uL (0.1-1.3); Absolute Neutrophil 16.6 K/uL (1.8-8.0); Basophils % 0.3 % (0-1.3); Hematocrit 40.3 % (39.6-49.0); Lymphocytes % 1.7 % (15.3-44.8); Monocytes % 2.9 % (3.3-12.3)
--- NOTE | 2018-05-12 14:04 | PN ---
Date of Progress Note: 05/11/2018 The patient still awaiting surgery when he was seen, but eminent. Vital signs were stable. He was ge tting his IV antibiotics and pain medication. Lipase was normal. HR/MODL Voice ID: [id number] Report ID: [id number]
--- NOTE | 2018-05-12 17:36 | P.PN ---
Date of Service: 05/12/18 S: Patient has no complaints apart from craving real food. Says he hardly needs any pain medication. He feels much better than when he presented. Now just says some incisional soreness. O: Vital signs remain stable, incisions are clean, white cell count still elevated but no bump and lipase. A: Surgically stable comments on radiology report concerning cholangiogram noted. That is an air bubble that we saw a during our fluoroscopy. In actual fact the cholangiocath passed easily down into the duodenum with no evidence of any distal obstruction. P: Patient continues to improve, I will discharge him tomorrow. He will see me next Monday in my office.
--- NOTE | 2018-05-12 18:28 | PN ---
Date of Progress Note: 05/12/2018 Subjective: The patient is doing very well. He is tolerating his limited diet, has been up and abou t without assistance. Vital signs stable. His white count still slightly elevated. They were billie nue with the above outlined treatment and probably continue as present. Would be discharge tomorrow. HR/MODL Voice ID: [id number] Report ID: [id number]
[2018-05-13] MEDS: METRONIDAZOLE 500mg IVPB 500 MG/100 ML BAG IV SCH ×4 (00:31→17:25)
[2018-05-13 05:12] LABS: Absolute Monocytes 1.4 K/uL (0.1-1.3); Absolute Neutrophil 18.2 K/uL (1.8-8.0); Basophils % 0.4 % (0-1.3); Hematocrit 39.4 % (39.6-49.0); Lymphocytes % 4.7 % (15.3-44.8); MPV 9.1 fL (7.6-11.3); Monocytes % 6.9 % (3.3-12.3); RBC Red Blood Cell Count 4.11 M/uL (4.33-5.43)
[2018-05-13 05:34] LABS: Potassium 4.7 mmol/L (3.5-5.1)
[2018-05-13 05:55] LABS: Blood Morphology Comment NOTED (NOT SEEN); Hypochromasia 1+; Platelet Estimate ADEQ; Urine White Blood Cell Casts OK
[2018-05-13] MEDS: CIPROFLOXACIN 400mg IV 400 MG/200 ML BAG IV SCH ×2 (09:35→21:34)
[2018-05-13] MEDS ORDERED: NA CHLORIDE 0.9% 100 ML ONE (12:28)
[2018-05-13 12:43] LABS: Absolute Lymphocytes (CBC) 1.3 K/uL (0.7-4.9); Absolute Monocytes 1.7 K/uL (0.1-1.3); Basophils % 0.2 % (0-1.3); Eosinophils % 0.3 % (0-4.4); Hematocrit 39.5 % (39.6-49.0); Lymphocytes % 6.6 % (15.3-44.8); MPV 8.7 fL (7.6-11.3); RBC Red Blood Cell Count 4.15 M/uL (4.33-5.43)
--- NOTE | 2018-05-13 15:48 | PN ---
Date of Progress Note: 05/13/2018 The patient states as far as his GI tract, he feels more comfortable. He actually had a formed bowel movement. However, most of the day he has complained of chills. Has had a history of UTI about 3 m onths ago. However, he did not have any residual fullness. He has had a stone 10-12 years ago and u rethral dilatation a number of years ago too by Dr. Little. Since his white count is still up, I will add cephalosporin to the regimen, do some more blood work and we will keep him at least another 24 h ours until this chills and white blood count problem is resolved. HR/MODL Voice ID: [id number] Report ID: [id number]
[2018-05-13] MEDS: ACETAMINOPHEN 500 MG TAB PO PRN ×2 (16:50→22:44)
[2018-05-13 17:02] LABS: Urine Appearance CLEAR; Urine Bilirubin NEGATIVE (NEG); Urine Blood NEGATIVE (NEG); Urine Color YELLOW; Urine Glucose NEGATIVE (NEG); Urine Protein NEGATIVE (NEG); Urine Specific Gravity 1.015 (1.005-1.030); Urine Urobilinogen 0.2 mg/dL (0.2-1.0); Urine pH 6.5 (5.0-7.0)
[2018-05-13] MEDS: CEFTRIAXONE/SWI 1gm 1 GM/10 ML SYR IVP SCH (17:24)
[2018-05-13 17:36] LABS: Urine Bacteria <20 /HPF (NONE SEEN); Urine Culture Reflex Order NOT NEEDED; Urine RBC <5 /HPF (NONE SEEN)
[2018-05-14] MEDS: METRONIDAZOLE 500mg IVPB 500 MG/100 ML BAG IV SCH ×5 (00:04→23:54)
[2018-05-14] MEDS: ACETAMINOPHEN 500 MG TAB PO PRN ×2 (04:47→11:42)
[2018-05-14 04:48] LABS: Absolute Lymphocytes (CBC) 1.6 K/uL (0.7-4.9); Absolute Monocytes 2.1 K/uL (0.1-1.3); Basophils % 0.4 % (0-1.3); Eosinophils % 0.5 % (0-4.4); Hematocrit 41.1 % (39.6-49.0); Lymphocytes % 8.2 % (15.3-44.8); MPV 8.8 fL (7.6-11.3); Monocytes % 10.3 % (3.3-12.3)
[2018-05-14 05:06] LABS: Potassium 4.1 mmol/L (3.5-5.1)
[2018-05-14] MEDS: CIPROFLOXACIN 400mg IV 400 MG/200 ML BAG IV SCH ×2 (09:14→21:29)
[2018-05-14] MEDS: CEFTRIAXONE/SWI 1gm 1 GM/10 ML SYR IVP SCH (09:15)
[2018-05-14] MEDS: ONDANSETRON 4 MG/2 ML VIAL IV PRN (16:04)
--- NOTE | 2018-05-14 17:40 | RAD REPORT ---
EXAM DESCRIPTION: RAD - Abdomen 1 View (KUB) - 05/14/2018 5:32 pm CLINICAL HISTORY: query UTI Pain COMPARISON: Abdomen 1 View (KUB) dated 05/10/2018 FINDINGS: The bowel gas pattern is non-obstructive. No evidence of free air or pneumatosis. No suspi cious calcifications. No significant bony findings. Scattered skin melina noted. IMPRESSION: Negative examination.
--- NOTE | 2018-05-14 18:41 | PN ---
Date of Progress Note: 05/14/2018 The patient states he does feel somewhat better today. chills. His white count, however, still elevated, questionable etiology. States he was at the urologist last week and they have suresh d him and told him that he need to be on antibiotic. I will check with them and see. In the meantim e, he will be discharged from surgical perspective and to follow up with the surgeon this week for cl ip removal and follow up with me next week in regard to his WBC and antibiotics. At this stage, we w ill hold off until I hear from the urologist. HR/MODL Voice ID: [id number] Report ID: [id number]
[2018-05-15] MEDS: ACETAMINOPHEN 500 MG TAB PO PRN ×2 (00:34→06:35)
[2018-05-15] MEDS: METRONIDAZOLE 500mg IVPB 500 MG/100 ML BAG IV SCH (05:43)
[2018-05-15] MEDS: CIPROFLOXACIN 400mg IV 400 MG/200 ML BAG IV SCH (08:37)
[2018-05-15 08:46] LABS: Absolute Lymphocytes (CBC) 1.6 K/uL (0.7-4.9); Absolute Monocytes 1.6 K/uL (0.1-1.3); Absolute Neutrophil 13.9 K/uL (1.8-8.0); Basophils % 0.4 % (0-1.3); Hematocrit 40.5 % (39.6-49.0); Lymphocytes % 9.2 % (15.3-44.8); MPV 8.4 fL (7.6-11.3); Monocytes % 9.4 % (3.3-12.3); RBC Red Blood Cell Count 4.18 M/uL (4.33-5.43)
[2018-05-15 09:12] LABS: Potassium 4.3 mmol/L (3.5-5.1)
[2018-05-15 10:47] VITALS: O2SAT 93
[2018-05-15 13:32] VITALS: BP 164/75; TEMP 97.6
== END 2018-05-15 11:51 | disposition home or self-care (01) | DRG 417 ==
LOC: ER 07:53 → ERHOLD 12:20 → 4TH 14:30
PROVIDERS: ADMIT Family Medicine; ATTEND Family Medicine
PROC: BF00YZZ Plain Radiography of Bile Ducts using Other Contrast (ICD-10-PCS; 2018-05-11)
PROC: 0FT44ZZ Resection of Gallbladder, Percutaneous Endoscopic Approach (ICD-10-PCS; principal; 2018-05-11 15:00)
DX: K80.10 Calculus of gallbladder with chronic cholecystitis without obstruction (principal); K85.90 Acute pancreatitis without necrosis or infection, unspecified; K82.1 Hydrops of gallbladder; I25.2 Old myocardial infarction; Z91.012 Allergy to eggs; Z91.018 Allergy to other foods
CPT/HCPCS: 36415; 70450; 71045; 74018; 74176; 74181; 76000; 80048; 80076; 81001; 82150; 83605; 83690; 83735; 83880; 84145; 84484; 85025; 85610; 87040; 87493; 87804; 88304; 93005; 96365; 96375; 99285; J0696; J0744; J1100; J2270; J2405; J2543; J2704; J2710; J3010; Q9967

== ENCOUNTER 2020-11-10 07:16 | Day surgery (SDC) | payer OTHER ==
--- NOTE | 2020-11-06 12:05 | RAD REPORT ---
EXAM DESCRIPTION: RAD - Chest Pa And Lat (2 Views) - 11/06/2020 11:55 am CLINICAL HISTORY: pre-op cath procedure COMPARISON: Portable April 2018, two view January 2016 TECHNIQUE: Frontal and lateral views of the chest were obtained. FINDINGS: The lungs are clear. Interstitial pattern matches comparison. Sternotomy wires are in jose ce. Diaphragm has flattened since 2016. Heart size is normal and central vasculature is within normal limits. No pleural effusion or pneumothorax seen. No acute bony finding noted. No aortic abnormal ity. IMPRESSION: No acute cardiopulmonary process. No suspicious change from prior imaging.
[2020-11-06 12:54] LABS: Protime INR 0.97
[2020-11-06 12:55] LABS: Absolute Lymphocytes (CBC) 1.6 K/uL (0.7-4.9); Basophils % 1.3 % (0-1.3); Hematocrit 43.2 % (39.6-49.0); Lymphocytes % 28.7 % (15.3-44.8); MPV 9.1 fL (7.6-11.3); RBC Red Blood Cell Count 4.39 M/uL (4.33-5.43)
[2020-11-06 13:13] LABS: Potassium 4.5 mmol/L (3.5-5.1)
--- NOTE | 2020-11-06 18:23 | EKG ---
Test Date: 2020-11-06 Test Time: 10:22:08 Hotel Room Attendant: PAMELA MEASUREMENT RESULTS: Intervals: Rate: 62 DE: 158 QRSD: 140 QT: 446 QTc: 452 Morrison: P: 54 DE: 158 QRS: -39 T: -25 INTERPRETIVE STATEMENTS: Normal sinus rhythm Left axis deviation Right bundle branch block Minimal voltage criteria for LVH, may be normal variant Inferior infarct, age undetermined Abnormal ECG Compared to ECG 05/10/2018 08:03:27 Left-axis deviation now present Left anterior fascicular block no longer present Bifascicular block no longer present Myocardial infarct finding still present Electronically Signed On 11-06-20 18:20:53 CDT by Andre Duran
[~2020-11-10 07:16] MED LIST: NA CHLORIDE 0.9% 500 ML ONE
[2020-11-10] MEDS ORDERED: LIDOCAINE 1% 20 ML MDV ONE (07:28)
[2020-11-10] MEDS ORDERED: HEPA 1000U/500MLS 1,000 UNIT/500 ML BAG IV ONE (07:28)
[2020-11-10] MEDS ORDERED: MIDAZOLAM HCL 2 MG/2 ML INJ ONE (07:47)
[2020-11-10] MEDS ORDERED: FENTANYL CITR 100 MCG/2 ML ONE (07:47)
[2020-11-10] MEDS ORDERED: NA CHLORIDE 0.9% 0 ML ONE (07:48)
[2020-11-10] MEDS ORDERED: ATROPINE SULF 1 MG/10 ML SYR IV ONE (07:48)
[2020-11-10] MEDS ORDERED: METHYLPREDNISOLONE 125 MG INJ ONE (07:48)
[2020-11-10 08:17] VITALS: TEMP 97
--- NOTE | 2020-11-10 09:21 | OP ---
Surgeon: Andre Duran MD Mechanical Pencils Assembler: Alfred Uriostegui. He will go home today after 2 hours of bedrest and I will make arrangements for him to have an appoin tment in [place] with one of the cardiovascular surgeons of his choice. Procedure Performed: Admitted as an outpatient on 11/10/2020 to the salvage laborer for left heart catheter ization, selective coronary arteriogram, vein graft injection to the RCA. Indication: Unstable angina and history of coronary artery disease. Mr. Davis is an 80-year-old male with history of CAD, hypertension, dyslipidemia. In the past, he had an RCA stent about 20 yea rs ago. This has occluded and then he underwent an SVG graft to the RCA. His graft recently occlude d about 2 months ago with an acute anterior AR, status post angioplasty and stent of the graft at [facility]. He comes back to my office with more chest pain. Catheterization was scheduled for krzysztof brown. Procedure In Detail: He was brought to the salvage laborer. Underwent the left heart catheterization, russell ctive coronary arteriogram and a vein graft injection to the RCA. He was prepped and draped in the r outine sterile fashion. Given Versed for sedation. Using Seldinger technique and 10 mL of Xylocaine , access was obtained through the right common femoral artery on the right. Angiography there was no rmal. Angio-Seal was used to close the case. Barbara catheter left and right were used to do the di agnostic catheterization. He had a very short left main that was normal. Proximal circumflex appear ed to have some ingp-[id number] plaquing, but the OM had about an 80% ostial stenosis. He appeared to be codominant. The ostium of the LAD had about an 80% to 90% stenosis. The JR4 was used to cannu late the [place] RCA, which was completely occluded. That was also used to cannulate the graft to the RCA and the vein graft to the RCA that was completely occluded after the recent intervention. The p atient tolerated the procedure well. There were no complications. Blood Loss: 5 mL. Anesthesia: Total conscious sedation was 45 minutes. Postoperative Diagnoses: Coronary artery disease, severe. Plan: For CABG at least with FOY to the LAD and a vein graft to the OM. I will discuss the case fu rther with the patient. NB/ASAL Voice ID: [id number] Report ID: [id number]
[2020-11-10 09:50] VITALS: BP 125/85; O2SAT 98
== END 2020-11-10 10:16 | disposition home or self-care (01) ==
LOC: CCL 07:16
DX: I25.110 Atherosclerotic heart disease of native coronary artery with unstable angina pectoris (principal); I25.700 Atherosclerosis of coronary artery bypass graft(s), unspecified, with unstable angina pectoris; I25.82 Chronic total occlusion of coronary artery; I10 Essential (primary) hypertension; E78.5 Hyperlipidemia, unspecified; Z95.5 Presence of coronary angioplasty implant and graft; Z88.8 Allergy status to other drugs, medicaments and biological substances; Z91.011 Allergy to milk products; Z91.018 Allergy to other foods; Z91.041 Radiographic dye allergy status; Z20.822 Contact with and (suspected) exposure to COVID-19
CPT/HCPCS: 93005; 85025; 80048; 36415; 85610; 85730; 71046; 93459; U0003; C1893; C1760; J2250; J3010; J7040; J1644; J2930; 93454; J0583

== ENCOUNTER 2022-07-20 10:58 | Emergency (ER) | payer OTHER ==
--- OUTSIDE RECORDS SUMMARY | 2022-07-20 11:03 | XMS REPORT | Continuity of Care Document ---
:1940 Author Organization [facility] t Address [address] [facility]. [address] [place] [address] Care Team Providers Name Role Phone John Worrell MD Primary Care Physician John Worrell Attending Clinician Unavailable AAMNDA SESAY Attending Clinician Unavailable CATHIE LEON Attending Clinician Unavailable AMANDA SESAY Admitting Clinician Unavailable Payers Payer Name Policy Type Policy Number Effective Date Expiration Date Jeremiah mccoy AETNA MEDICARE [id number] 2013 2013 HMO 00:00:00 00:00:00 AETNA MEDICARE [id number] 2020 O POS PPO 00:00:00 Problems Condition Condition Condition Status Onset Resolution Last Treating Co mments Source Name Details Category Date Date Treatment Clinician Date s/p ACB x1 s/p ACB x1 Disease Active 2020-[address] by by 0-20 Rell Sesay 00:00: Medical 12/09/20 12/09/20 00 [place] Coronary Coronary Disease Active 2020[facility]05 [facility] disease disease 00:00: Medical 00 [place] Hyperlipid Hyperlipid Disease Active 2020-[address] emia emia 0-05 [facility] 00:[facility]: Medical 00 [place] Essential Essential Disease Active 2020-[address] hypertensi hypertensi 0-05 [place] kes on on 00:00: Medical 00 [place] Shortness Shortness Disease Active 2020-[address] of breath of breath 0-05 [facility] s 00:00: Medical 00 [place] History of History of Disease Active M ethodi kidney kidney 2-25 st stones stones 00:00: Hospita 00 l Cardiogeni Cardiogeni Disease Recurre [facility] c shock c shock [facility] Acute on Acute on Disease Recurre [facility] chronic chronic [facility] systolic systolic Medica l heart heart Center failure failure Hypovolemi Hypovolemi Disease Recurre [facility] c shock c shock [facility] Acute Acute Disease Active [facility] respirator respirator [place] kes y y Medical insufficie insufficie Ce nter ncy uty Acute Acute Disease Active [facility] blood loss blood loss [facility] anemia anemia [facility] [id number] Lower Problem Active Common urinary Spirit tract - [facility] symptoms (LUTS) [facility] [id number] Elevated Problem Active Comm on PSA Spirit - [facility] [id number] Right Problem Active Common sided Spirit sciatica - [facility] [id number] Pain in Problem Active Common joint of Spirit right knee [facility] [id number] Other Problem Active Commo n [id number] stricture Spirit of - [facility] overlappin St g sites of [facility] urethra in Medica male Center Allergies, Adverse Reactions, Alerts Allergy Allergy Status Severity Reaction(s) Onset Inactive Treating Comm ents Source Name Type Date Date Clinician Atorvast Propensi Active 2020-[address] atin ty to 0-04 [facility] adverse 00:00: Medical reaction 00 [place] s Gluten Propensi Active 2020-[address] ty to 0-04 [facility] adverse 00:00: Medical reaction 00 Center s Iodine Propensi Active Hives 2020-[address] ty to 0-04 [facility] adverse 00:00: Medical reaction 00 [place] s Wheat Propensi Active 2020-[address] ty to 0-04 [facility] adverse 00:00: Medical reaction 00 Center s IODINE Allergy Active High Hives 2020-[address] [facility] 0-04 [facility] 00:00: Medical 00 [place] ATORVAST Allergy Active 2020-[address] ATIN 0-04 [facility] 00:00: Medical 00 [place] GLUTEN Allergy Active 2020-[address] 0-04 [facility] 00:00: Medical 00 Center WHEAT Allergy Active 2020-[address] 0-04 [facility] 00:00: Medical 00 [place] Iodine Propensi Active Hives Methodi ty to 2-25 st adverse 00:00: Hospita reaction 00 l s to drug 463 Drug Active Unknown Common allergy [facility] Wheat Wheat Active Unknown [facility] Gluten Gluten Active Unknown [facility] Family History Family Member Diagnosis Comments Start Date Stop Date Source Natural father Cancer [facility] Natural mother ALS [facility] Social History Social Habit Start Date Stop Date Quantity Comments Source [facility] Alcohol Std Drinks [facility] Alcohol Binge Medical [facility] History of Tobacco [facility] - Use [facility] Alcohol intake 2020-12-10 2020-12-10 Ex-drinker [facility] es 00:00:00 00:00:00 (finding) Medical Center Tobacco use and 2020-11-23 2020-11-23 Smokeless [facility] exposure 00:00:00 00:00:00 tobacco non-user [facility] History SDOH 2020-11-23 2020-11-23 1 [facility] Alcohol Frequency 00:00:00 00:00:00 [facility] History of Social 2018-10-11 2018-10-[address] function 00:00:00 00:00:00 Hospital Sex Ass[birth year] At [birth year] [facility] 00:00:00 00:00:00 [facility] Smoking Status Start Date Stop Date Source Never Smoker [facility] Medications Ordered Filled Start Stop Current Ordering Indication Dosage Frequency Signature Comments Components Source Medication Medication Date Date Medication? Clinician (SIG) Name Name amiodarone 2020-02 200mg QD Take [address] (PACERONE) 0-27 10-27 tablet [facility] 200 MG 00:00: 23:59 (200 mg Medical tablet 00 :00 total) by Center mouth daily. multivitami 2020-02 Yes 1{tbl} QD Take [address] n with 0-26 tablet by [facility] minerals 15:40: mouth Medical tablet 23 daily. [place] aspirin 81 2020-02 Yes 81mg QD Take [address] MG EC 0-26 by mouth [facility] tablet 15:40: daily. [address] SAW 2020-02 Yes QD Take by [facility] PALMETTO 0-26 mouth [facility] ORAL 15:40: daily. [address] zinc 2020-02 Yes 50mg QD Take [address] gluconate 0-26 by mouth [facility]ukes 50 mg 15:40: daily. Medical tablet 23 [place] calcium 2020-02 Yes 2{tbl} QD Take [address] carbonate-v 0-26 tablets by [place] sheikh itamin D3 00:00: mouth Medical (OSCAL) 00 daily. [place] 250-125 mg-unit Tab per tablet gabapentin 2020-02 No 100mg Q.[id number] Take [address] (NEURONTIN) 0-26 10-26 [id number] capsule [facility] 100 MG 00:00: 23:59 3D (100 mg Medical capsule 00 :00 total) by Center mouth 3 (three) times daily. metoprolol 2020-02- No 25mg Q.5D Take [address] tartrate 0-26 10-26 tablet (25 Luke s (LOPRESSOR) 00:00: 23:59 mg total) Medical 25 MG 00 :00 by mouth 2 Center tablet (two) times daily. nitroglycer Yes .4mg Place 0.[address] in 8-18 mg under [facility]ukes (NITROSTAT) 00:00: the tongue Medical 0.4 MG SL 00 every 5 Center tablet (five) minutes as needed . aspirin Yes 81mg QD Take 81 mg Meth graciela (ECOTRIN) 3-[address] 81 MG 16:58: daily. Hospita enteric 27 l coated tablet L-GLUTAMINE Yes Take by Met hodi ORAL 3-[address] 16:58: Hospita 27 l enzymes,dig Yes Take by Met hodi estive 3-[address] (ENZYME 16:58: Hospita DIGEST 27 l ORAL) cetirizine Yes 10mg Q24H Take 10 mg M ethodi (ZyrTEC) 10 3-[address] MG tablet 16:58: daily as Hosp sp 27 needed. l multivitami Yes 1{tbl} QD Take 1 Me thodi n with 3-[address] minerals 16:58: mouth Hospita tablet 27 daily. l tamsulosin Yes .4mg QD Take 1 Metho di (FLOMAX) 2-[address] 0.4 mg 00:00: (0.4 mg Hospita capsule 00 total) by l mouth daily. Aspir-81 Aspir-81 Yes Aroldo not Beth Mejia defined [facility] Aspir-81 Aspir-81 No Aspir-81 Aspir-81 Aspir-81 No Aspir-81 Aspir-81 Aspir-81 No Aspir-81 Vital Signs Vital Name Observation Time Observation Value Comments Source height 2021-05-20 13:00:00 67 [in_i] [facility] weight 2021-05-20 13:00:00 155 [lb_av] [facility] temperature 2021-05-20 13:00:00 98 [degF] [facility] bmi 2021-05-20 13:00:00 24.27 kg/m2 [facility] oximetry 2021-05-20 13:00:00 99 % [facility] respiratory rate 2021-05-20 13:00:00 16 /min Comm on [facility] blood pressure 2021-05-20 13:00:00 178 mm[Hg] [facility] - systolic [facility] blood pressure 2021-05-20 13:00:00 77 mm[Hg] [facility] - diastolic [facility] height 2021-03-17 14:00:00 67 [in_i] [facility] weight 2021-03-17 14:00:00 150 [lb_av] [facility] temperature 2021-03-17 14:00:00 97.4 [degF] [facility] bmi 2021-03-17 14:00:00 23.49 kg/m2 [facility] oximetry 2021-03-17 14:00:00 100 % Common S pirit - [facility] respiratory rate 2021-03-17 14:00:00 16 /min Comm on [facility] blood pressure 2021-03-17 14:00:00 170 mm[Hg] [facility] - systolic [facility] blood pressure 2021-03-17 14:00:00 77 mm[Hg] [facility] - diastolic [facility] WEIGHT 2020-12-14 06:24:00 74.844 kg WEIGHT 2020-12-13 04:40:00 75.978 kg WEIGHT 2020-12-12 16:00:00 77.61 kg HEIGHT 2020-12-09 08:54:00 170.2 cm WEIGHT 2020-12-09 08:54:00 69.4 kg WEIGHT 2020-12-14 06:24:00 74.844 kg WEIGHT 2020-12-13 04:40:00 75.978 kg WEIGHT 2020-12-12 16:00:00 77.61 kg HEIGHT 2020-12-09 08:54:00 170.2 cm WEIGHT 2020-12-09 08:54:00 69.4 kg HEIGHT 2020-12-07 11:29:00 170.2 cm WEIGHT 2020-12-07 11:29:00 71.215 kg HEIGHT 2020-12-07 11:29:00 170.2 cm WEIGHT 2020-12-07 11:29:00 71.215 kg HEIGHT 2020-11-23 11:07:00 170.2 cm WEIGHT 2020-11-23 11:07:00 71.033 kg Procedures This patient has no known procedures. Plan of Care Planned Activity Planned Date Details Comments Source Future Scheduled 2022-10-21 INFLUENZA VACCINE [facility] Test 00:00:00 (Season Ended) [code = [facility] INFLUENZA VACCINE (Season Ended)] Future Scheduled 2022-05-22 COVID-19 VACCINE (#1) [facility] Test 05:19:33 [code = COVID-19 VACCINE (#1)] Future Scheduled 2022-05-22 SHINGLES VACCINES (1 Met [facility] Test 05:19:33 of 2) [code = SHINGLES VACCINES (1 of 2)] Future Scheduled 2022-05-22 65+ [facility]OC[facility]CC[address] [facility] Test 05:19:33 VACCINE (1 - PCV) [code = 65+ PNEUMOCOCCAL VACCINE (1 - PCV)] Future Scheduled 2022-05-22 INFLUENZA VACCINE [facility] Test 05:19:33 [code = INFLUENZA VACCINE] Future Scheduled 2022-02-[address] [facility] Test 00:00:00 (12+) [code = Medical Center DEPRESSION SCREENING (12+)] Future Scheduled 2022-02-20 FALLS RISK SCREENING [facility] Test 00:00:00 [code = FALLS RISK Medical C enter SCREENING] Future Scheduled 2021-12-[address] [facility] Test 00:00:00 Counseling and Medical Cente r Screening (12+) [code = Tobacco Cessation Counseling and Screening (12+)] Future Scheduled 2021-02-[address] [facility] Test 00:00:00 WELLNESS (YEAR 2 or Medical Center FIRST YEAR if no IPPE) [code = MEDICARE ANNUAL WELLNESS (YEAR 2 or FIRST YEAR if no IPPE)] Future Scheduled 1988-01-12 SHINGLES VACCINES ([address] [facility] Test 00:00:00 of 2) [code = SHINGLES Medic al Center VACCINES (1 of 2)] Future Scheduled 1957 DTAP/TDAP/TD VACCINES [facility] Test 00:00:00 (1 - Tdap) [code = Medical C enter DTAP/TDAP/TD VACCINES (1 - Tdap)] Future Scheduled 1944-01-12 PNEUMOCOCCAL 65+ YRS [facility] Test 00:00:00 (1 - PCV) [code = Medical Ce nter PNEUMOCOCCAL 65+ YRS (1 - PCV)] Future Scheduled 1940 COVID-19 VACCINE (#1) [facility] Test 00:00:00 [code = COVID-[address] VACCINE (#1)] Encounters Start End Encounter Admission Attending Care Care Encounter Source Date/Time Date/Time Type Type Clinicians Facility Department ID 2022-05-03 Outpatient [facility] [id number] [place] 08:03:58 [id number] [facility] 2022-04-04 Outpatient [facility] [id number] [place] 13:13:26 [id number] [facility] 2021-10-20 Outpatient [facility] [id number] [place] 19:06:02 [id number] [facility] 2021-08-30 Outpatient [facility] [id number] [place] 14:22:54 [id number] [facility] 2021-08-26 Outpatient [facility] [id number] [place] 11:27:43 [id number] [facility] 2021-05-17 Outpatient Anaid, STVIKYLC STLMLC [id number] 2 Common 15:15:02 John [facility] 2021-03-17 Outpatient Anaid, STLMLC STLMLC [id number] Common 13:40:00 John [facility] 2021-05-26 2021-05-26 (TEL) STLMLC STLMLC [id number] Co mmon 00:00:00 00:00:00 Spirit [facility] 2021-05-20 2021-05-20 OFFICE STLMLC STLMLC [id number] Co mmon 00:00:00 00:00:00 VISIT Spirit ESTAB PT - [facility] LEVEL [facility] 2021-03-17 2021-03-17 OFFICE STLMLC STLMLC [id number] Co mmon 00:00:00 00:00:00 VISIT [facility] PT LEVEL 3 - [facility] 2020-12-28 2020-12-28 [facility] [id number] [facility] 00:00:00 00:00:00 AMANDA 2020-12-09 2020-12-15 Inpatient [facility] Surgery [id number] [facility] 07:54:00 15:40:00 CATHIE 2020-12-09 2020-12-09 Outpatient [facility] [id number] [facility] 07:54:00 23:59:00 [facility] 2020-12-09 2020-12-09 Outpatient [facility] [id number] [facility] 00:00:00 07:53:00 [facility] 2020-12-08 2020-12-08 Outpatient ZI [facility] [id number] [facility] 12:22:42 23:59:00 2020-12-07 2020-12-07 Outpatient ZI SESAY [facility] [id number] [facility] 11:24:35 11:24:35 AMANDA 2020-11-30 2020-11-30 Outpatient ZI [facility] [id number] 473 [facility] 13:23:43 23:59:00 2020-11-23 2020-11-23 Outpatient ZI SESAY [facility] [id number] [facility] 12:38:27 12:38:27 AMANDA 2018-03-19 2018-03-19 Outpatient Rocael Cotet 23 [id number] Common 10:00:00 10:00:00 [facility] Results Test Description Test Time Test Comments Results Result Comments Source POCT-GLUCOSE METER 2020-12-15 11:45:29 Test Item Value Reference Range Interpretation Comme nts POC-GLUCOSE METER (BEAKER) 106 mg/dL 70-110 : TESTED AT [facility] [address] [facility] (test code = 1538) [facility], [address]: Creative Writing English Professor/Techni angelique ID = [id number] for WALTER SHORT POCT-GLUCOSE [id number] 07:34:02 Test Item Value Reference Range Interpretation Comments POC-GLUCOSE METER 98 mg/dL 70-110 : [facility] (BEAKER) (test code = KHANH Muniz [facility], 1538) [id number]: Creative Writing English Professor/Techni angelique ID = [id number] for WALTER MARTE BASIC METABOLIC [id number] 05:44:20 Test Item Value Reference Range Interpretation Comments SODIUM (BEAKER) 135 meq/L 136-145 L (test code = 381) POTASSIUM (BEAKER) 3.7 meq/L 3.5-5.1 (test code = 379) CHLORIDE (BEAKER) 102 meq/L 98-107 (test code = 382) CO2 (BEAKER) (test 25 meq/L 22-29 code = 355) BLOOD UREA NITROGEN 12 mg/dL 7-21 (BEAKER) (test code = 354) CREATININE (BEAKER) 0.72 mg/dL 0.57-1.25 (test code = 358) GLUCOSE RANDOM 99 mg/dL 70-105 (BEAKER) (test code = 652) CALCIUM (BEAKER) 7.9 mg/dL 8.4-10.2 L (test code = 697) EGFR (BEAKER) (test 105 mL/min/1.73 ESTIM ATED GFR IS code = 1092) sq m NOT ACCURATE CREATININE CLEARANCE IN PREDICTING GLOMERULAR FILTRATION RATE . ESTIMATED GFR I S NOT APPLICABLE FOR DIALYSIS PATIEN TS. Creative Writing English Professor ID - PIAYA LCBC W/PLT COUNT & AUTO [id number] 04:16:58 Test Item Value Reference Range Interpretation Comments WHITE BLOOD CELL COUNT (BEAKER) 7.1 K/ L 3.5-10.5 (test code = 775) RED BLOOD CELL COUNT (BEAKER) 3.18 M/ L 4.63-6.08 L (test code = 761) HEMOGLOBIN (BEAKER) (test code = 10.0 GM/DL 13.7-17.5 L 410) HEMATOCRIT (BEAKER) (test code = 31.0 % 40.1-51.0 L 411) MEAN CORPUSCULAR VOLUME (BEAKER) 97.5 fL 79.0-92.2 H (test code = 753) MEAN CORPUSCULAR HEMOGLOBIN 31.4 pg 25.7-32.2 (BEAKER) (test code = 751) MEAN CORPUSCULAR HEMOGLOBIN CONC 32.3 GM/DL 32.3-36.5 (BEAKER) (test code = 752) RED CELL DISTRIBUTION WIDTH 14.5 % 11.6-14.4 H (BEAKER) (test code = 412) PLATELET COUNT (BEAKER) (test 241 K/CU MM 150-450 code = 756) MEAN PLATELET VOLUME (BEAKER) 10.4 fL 9.4-12.4 (test code = 754) NUCLEATED RED BLOOD CELLS 0 /100 WBC 0-0 (BEAKER) (test code = 413) NEUTROPHILS RELATIVE PERCENT 55 % (BEAKER) (test code = 429) LYMPHOCYTES RELATIVE PERCENT 23 % (BEAKER) (test code = 430) MONOCYTES RELATIVE PERCENT 13 % (BEAKER) (test code = 431) EOSINOPHILS RELATIVE PERCENT 8 % (BEAKER) (test code = 432) BASOPHILS RELATIVE PERCENT 1 % (BEAKER) (test code = 437) NEUTROPHILS ABSOLUTE COUNT 3.89 K/ L 1.78-5.38 (BEAKER) (test code = 670) LYMPHOCYTES ABSOLUTE COUNT 1.64 K/ L 1.32-3.57 (BEAKER) (test code = 414) MONOCYTES ABSOLUTE COUNT (BEAKER) 0.93 K/ L 0.30-0.82 H (test code = 415) EOSINOPHILS ABSOLUTE COUNT 0.54 K/ L 0.04-0.54 (BEAKER) (test code = 416) BASOPHILS ABSOLUTE COUNT (BEAKER) 0.07 K/ L 0.01-0.08 (test code = 417) IMMATURE GRANULOCYTES-RELATIVE 0 % 0-1 PERCENT (BEAKER) (test code = 2801) POCT-GLUCOSE [id number] 21:22:56 Test Item Value Reference Range Interpretation Comments POC-GLUCOSE METER 112 mg/dL 70-110 H : TESTED A T [facility] 6720 (BEAKER) (test code = [facility], 1538) [id number]: Creative Writing English Professor/Techni angelique ID = [id number] for Re yes, Sairy POCT-GLUCOSE [id number] 16:40:30 Test Item Value Reference Range Interpretation Comments POC-GLUCOSE METER 90 mg/dL 70-110 : TESTED A T [facility] 6720 (BEAKER) (test code = [facility], 1538) [address]: Creative Writing English Professor/Techni angelique ID = [id number] for ORPH EY, WALTER POCT-GLUCOSE [id number] 12:50:31 Test Item Value Reference Range Interpretation Comments POC-GLUCOSE METER 104 mg/dL 70-110 : TESTED A T [facility] 6720 (BEAKER) (test code = [facility], 1538) [address]: Creative Writing English Professor/Techni angelique ID = [id number] for OR PHEY, WALTER POCT-GLUCOSE [id number] 07:47:12 Test Item Value Reference Range Interpretation Comments POC-GLUCOSE METER 107 mg/dL 70-110 : TESTED A T [facility] 6720 (BEAKER) (test code = [facility], 1538) [id number]: Creative Writing English Professor/Techni angelique ID = [id number] for OR PHEY, WALTER BASIC METABOLIC [id number] 06:31:59 Test Item Value Reference Range Interpretation Comments SODIUM (BEAKER) 136 meq/L 136-145 (test code = 381) POTASSIUM (BEAKER) 3.8 meq/L 3.5-5.1 (test code = 379) CHLORIDE (BEAKER) 104 meq/L 98-107 (test code = 382) CO2 (BEAKER) (test 23 meq/L 22-29 code = 355) BLOOD UREA NITROGEN 12 mg/dL 7-21 (BEAKER) (test code = 354) CREATININE (BEAKER) 0.69 mg/dL 0.57-1.25 (test code = 358) GLUCOSE RANDOM 103 mg/dL 70-105 (BEAKER) (test code = 652) CALCIUM (BEAKER) 8.3 mg/dL 8.4-10.2 L (test code = 697) EGFR (BEAKER) (test 110 mL/min/1.73 ESTIM ATED GFR IS code = 1092) sq m NOT ACCURATE CREATININE CLEARANCE IN PREDICTING GLOMERULAR FILTRATION RATE . ESTIMATED GFR I S NOT APPLICABLE FOR DIALYSIS PATIEN TS. Creative Writing English Professor ID - PIAYA LCBC W/PLT COUNT & AUTO [id number] 05:21:44 Test Item Value Reference Range Interpretation Comments WHITE BLOOD CELL COUNT (BEAKER) 7.6 K/ L 3.5-10.5 (test code = 775) RED BLOOD CELL COUNT (BEAKER) 3.14 M/ L 4.63-6.08 L (test code = 761) HEMOGLOBIN (BEAKER) (test code = 9.9 GM/DL 13.7-17.5 L 410) HEMATOCRIT (BEAKER) (test code = 30.3 % 40.1-51.0 L 411) MEAN CORPUSCULAR VOLUME (BEAKER) 96.5 fL 79.0-92.2 H (test code = 753) MEAN CORPUSCULAR HEMOGLOBIN 31.5 pg 25.7-32.2 (BEAKER) (test code = 751) MEAN CORPUSCULAR HEMOGLOBIN CONC 32.7 GM/DL 32.3-36.5 (BEAKER) (test code = 752) RED CELL DISTRIBUTION WIDTH 14.6 % 11.6-14.4 H (BEAKER) (test code = 412) PLATELET COUNT (BEAKER) (test 189 K/CU MM 150-450 code = 756) MEAN PLATELET VOLUME (BEAKER) 10.6 fL 9.4-12.4 (test code = 754) NUCLEATED RED BLOOD CELLS 0 /100 WBC 0-0 (BEAKER) (test code = 413) NEUTROPHILS RELATIVE PERCENT 64 % (BEAKER) (test code = 429) LYMPHOCYTES RELATIVE PERCENT 17 % (BEAKER) (test code = 430) MONOCYTES RELATIVE PERCENT 14 % (BEAKER) (test code = 431) EOSINOPHILS RELATIVE PERCENT 4 % (BEAKER) (test code = 432) BASOPHILS RELATIVE PERCENT 1 % (BEAKER) (test code = 437) NEUTROPHILS ABSOLUTE COUNT 4.85 K/ L 1.78-5.38 (BEAKER) (test code = 670) LYMPHOCYTES ABSOLUTE COUNT 1.29 K/ L 1.32-3.57 L (BEAKER) (test code = 414) MONOCYTES ABSOLUTE COUNT (BEAKER) 1.09 K/ L 0.30-0.82 H (test code = 415) EOSINOPHILS ABSOLUTE COUNT 0.29 K/ L 0.04-0.54 (BEAKER) (test code = 416) BASOPHILS ABSOLUTE COUNT (BEAKER) 0.06 K/ L 0.01-0.08 (test code = 417) IMMATURE GRANULOCYTES-RELATIVE 0 % 0-1 PERCENT (BEAKER) (test code = 2801) POCT-GLUCOSE [id number] 21:22:03 Test Item Value Reference Range Interpretation Comments POC-GLUCOSE METER 110 mg/dL 70-110 : TESTED A T [facility] 6720 (BEAKER) (test code = [facility], 153) [id number]: Creative Writing English Professor/Techni angelique ID = [id number] for RO VIKTOR, COMFORT POCT-GLUCOSE [id number] 16:35:05 Test Item Value Reference Range Interpretation Comments POC-GLUCOSE METER 102 mg/dL 70-110 : TESTED A T [facility] 6720 (BEAKER) (test code = [facility], 1538) [address]: Creative Writing English Professor/Techni angelique ID = [id number] for Ray, Melissa POCT-GLUCOSE [id number] 12:14:24 Test Item Value Reference Range Interpretation Comments POC-GLUCOSE METER 116 mg/dL 70-110 H : TESTED A T [facility] 6720 (BEAKER) (test code = [facility], 1538) [id number]: Creative Writing English Professor/Techni angelique ID = [id number] for Ray, Melissa POCT-GLUCOSE [id number] 08:03:42 Test Item Value Reference Range Interpretation Comments POC-GLUCOSE METER 73 mg/dL 70-110 : TESTED A T [facility] 6720 (BEAKER) (test code = [facility] [place], 1538) [address]: Creative Writing English Professor/Techni angelique ID = [id number] for Melissa Montanez BASIC METABOLIC [id number] 05:13:51 Test Item Value Reference Range Interpretation Comments SODIUM (BEAKER) 137 meq/L 136-145 (test code = 381) POTASSIUM (BEAKER) 3.6 meq/L 3.5-5.1 (test code = 379) CHLORIDE (BEAKER) 103 meq/L 98-107 (test code = 382) CO2 (BEAKER) (test 24 meq/L 22-29 code = 355) BLOOD UREA NITROGEN 14 mg/dL 7-21 (BEAKER) (test code = 354) CREATININE (BEAKER) 0.66 mg/dL 0.57-1.25 (test code = 358) GLUCOSE RANDOM 81 mg/dL 70-105 (BEAKER) (test code = 652) CALCIUM (BEAKER) 8.1 mg/dL 8.4-10.2 L (test code = 697) EGFR (BEAKER) (test 116 mL/min/1.73 ESTIM ATED GFR IS code = 1092) sq m NOT ACCURATE CREATININE CLEARANCE IN PREDICTING GLOMERULAR FILTRATION RATE . ESTIMATED GFR I S NOT APPLICABLE FOR DIALYSIS PATIEN TS. Creative Writing English Professor ID - PIAYA LCBC W/PLT COUNT & AUTO [id number] 05:04:08 Test Item Value Reference Range Interpretation Comments WHITE BLOOD CELL COUNT (BEAKER) 9.2 K/ L 3.5-10.5 (test code = 775) RED BLOOD CELL COUNT (BEAKER) 3.04 M/ L 4.63-6.08 L (test code = 761) HEMOGLOBIN (BEAKER) (test code = 9.8 GM/DL 13.7-17.5 L 410) HEMATOCRIT (BEAKER) (test code = 29.7 % 40.1-51.0 L 411) MEAN CORPUSCULAR VOLUME (BEAKER) 97.7 fL 79.0-92.2 H (test code = 753) MEAN CORPUSCULAR HEMOGLOBIN 32.2 pg 25.7-32.2 (BEAKER) (test code = 751) MEAN CORPUSCULAR HEMOGLOBIN CONC 33.0 GM/DL 32.3-36.5 (BEAKER) (test code = 752) RED CELL DISTRIBUTION WIDTH 14.8 % 11.6-14.4 H (BEAKER) (test code = 412) PLATELET COUNT (BEAKER) (test 134 K/CU MM 150-450 L code = 756) MEAN PLATELET VOLUME (BEAKER) 10.9 fL 9.4-12.4 (test code = 754) NUCLEATED RED BLOOD CELLS 0 /100 WBC 0-0 (BEAKER) (test code = 413) NEUTROPHILS RELATIVE PERCENT 74 % (BEAKER) (test code = 429) LYMPHOCYTES RELATIVE PERCENT 12 % (BEAKER) (test code = 430) MONOCYTES RELATIVE PERCENT 10 % (BEAKER) (test code = 431) EOSINOPHILS RELATIVE PERCENT 2 % (BEAKER) (test code = 432) BASOPHILS RELATIVE PERCENT 1 % (BEAKER) (test code = 437) NEUTROPHILS ABSOLUTE COUNT 6.81 K/ L 1.78-5.38 H (BEAKER) (test code = 670) LYMPHOCYTES ABSOLUTE COUNT 1.13 K/ L 1.32-3.57 L (BEAKER) (test code = 414) MONOCYTES ABSOLUTE COUNT (BEAKER) 0.95 K/ L 0.30-0.82 H (test code = 415) EOSINOPHILS ABSOLUTE COUNT 0.22 K/ L 0.04-0.54 (BEAKER) (test code = 416) BASOPHILS ABSOLUTE COUNT (BEAKER) 0.05 K/ L 0.01-0.08 (test code = 417) IMMATURE GRANULOCYTES-RELATIVE 1 % 0-1 PERCENT (BEAKER) (test code = 2801) POCT-GLUCOSE [id number] 21:22:25 Test Item Value Reference Range Interpretation Comments POC-GLUCOSE METER 95 mg/dL 70-110 : TESTED A T [facility] 6720 (BEAKER) (test code = [facility], 153) [address]: Creative Writing English Professor/Techni angelique ID = [id number] for COMFORT RICHARDSON POCT-GLUCOSE [id number] 17:57:00 Test Item Value Reference Range Interpretation Comments POC-GLUCOSE METER 97 mg/dL 70-110 : TESTED A T [facility] 6720 (BEAKER) (test code = [facility], 153) [address]: Creative Writing English Professor/Techni angelique ID = [id number] for Janice Matamoros POCT-GLUCOSE [id number] 11:56:08 Test Item Value Reference Range Interpretation Comments POC-GLUCOSE METER 99 mg/dL 70-110 : TESTED A T [facility] 6720 (RODO) (test code = [facility], 1538) 28[address]: Creative Writing English Professor/Techni angelique ID = [id number] for Janice Matamoros POCT-GLUCOSE [id number] 09:45:45 Test Item Value Reference Range Interpretation Comments POC-GLUCOSE METER 129 mg/dL 70-110 H : TESTED A T [facility] 6720 (RODO) (test code = [facility], 1538) [address]: Creative Writing English Professor/Techni angelique ID = [id number] for Janice Lynn RAD, CHEST, 1 VIEW, NON [id number] 07:11:00Reason for exam:->s/p ACBShould this be performed at the bedside?->Yes [facility] : 1940 Sex: MFINAL REPORT RAD, CHEST, 1 VIEW, NON DEPT INDICATION: s/p ACB COMPARISON: Prior day's exam FINDINGS: Portable frontal view of the chest. IMPRESSION: Support Lines: Sternotomy wires Lungs and pleura: Small bilateral effusions and central hilar interstitial thickening are unchanged. Nosignificant pneumothorax. Heart and mediastinum: Stable contours. Additional findings: None. Signed:Ashlee Genao Verified Date/Time: 12/12/2020 07:11:19 C METABOLIC [id number] 06:52:20 Test Item Value Reference Range Interpretation Comments SODIUM (BEAKER) 136 meq/L 136-145 (test code = 381) POTASSIUM (BEAKER) 3.8 meq/L 3.5-5.1 (test code = 379) CHLORIDE (BEAKER) 103 meq/L 98-107 (test code = 382) CO2 (BEAKER) (test 26 meq/L 22-29 code = 355) BLOOD UREA NITROGEN 12 mg/dL 7-21 (BEAKER) (test code = 354) CREATININE (BEAKER) 0.69 mg/dL 0.57-1.25 (test code = 358) GLUCOSE RANDOM 97 mg/dL 70-105 (BEAKER) (test code = 652) CALCIUM (BEAKER) 7.9 mg/dL 8.4-10.2 L (test code = 697) EGFR (BEAKER) (test 110 mL/min/1.73 ESTIM ATED GFR IS code = 1092) sq m NOT ACCURATE CREATININE CLEARANCE IN PREDICTING GLOMERULAR FILTRATION RATE . ESTIMATED GFR I S NOT APPLICABLE FOR DIALYSIS PATIEN TS. Creative Writing English Professor ID - RIKA [id number] 06:51:57 Test Item Value Reference Range Interpretation Comments PHOSPHORUS (BEAKER) (test code = 2.3 mg/dL 2.3-4.7 604) Creative Writing English Professor ID - RIKA [id number] 06:51:56 Test Item Value Reference Range Interpretation Comments MAGNESIUM (BEAKER) (test code = 1.8 mg/dL 1.6-2.6 627) Creative Writing English Professor ID - RIKA MCBC W/PLT COUNT & AUTO [id number] 06:40:46 Test Item Value Reference Range Interpretation Comments WHITE BLOOD CELL COUNT (BEAKER) 12.8 K/ L 3.5-10.5 H (test code = 775) RED BLOOD CELL COUNT (BEAKER) 2.88 M/ L 4.63-6.08 L (test code = 761) HEMOGLOBIN (BEAKER) (test code = 9.3 GM/DL 13.7-17.5 L 410) HEMATOCRIT (BEAKER) (test code = 28.0 % 40.1-51.0 L 411) MEAN CORPUSCULAR VOLUME (BEAKER) 97.2 fL 79.0-92.2 H (test code = 753) MEAN CORPUSCULAR HEMOGLOBIN 32.3 pg 25.7-32.2 H (BEAKER) (test code = 751) MEAN CORPUSCULAR HEMOGLOBIN CONC 33.2 GM/DL 32.3-36.5 (BEAKER) (test code = 752) RED CELL DISTRIBUTION WIDTH 14.8 % 11.6-14.4 H (BEAKER) (test code = 412) PLATELET COUNT (BEAKER) (test code 98 K/CU MM 150-450 L = 756) MEAN PLATELET VOLUME (BEAKER) 11.2 fL 9.4-12.4 (test code = 754) NUCLEATED RED BLOOD CELLS (BEAKER) 0 /100 WBC 0-0 (test code = 413) NEUTROPHILS RELATIVE PERCENT 83 % (BEAKER) (test code = 429) LYMPHOCYTES RELATIVE PERCENT 8 % (BEAKER) (test code = 430) MONOCYTES RELATIVE PERCENT 8 % (BEAKER) (test code = 431) EOSINOPHILS RELATIVE PERCENT 1 % (BEAKER) (test code = 432) BASOPHILS RELATIVE PERCENT 0 % (BEAKER) (test code = 437) NEUTROPHILS ABSOLUTE COUNT 10.61 K/ L 1.78-5.38 H (BEAKER) (test code = 670) LYMPHOCYTES ABSOLUTE COUNT 1.01 K/ L 1.32-3.57 L (BEAKER) (test code = 414) MONOCYTES ABSOLUTE COUNT (BEAKER) 1.02 K/ L 0.30-0.82 H (test code = 415) EOSINOPHILS ABSOLUTE COUNT 0.10 K/ L 0.04-0.54 (BEAKER) (test code = 416) BASOPHILS ABSOLUTE COUNT (BEAKER) 0.02 K/ L 0.01-0.08 (test code = 417) IMMATURE GRANULOCYTES-RELATIVE 1 % 0-1 PERCENT (BEAKER) (test code = 2801) CALCIUM, [id number] 06:40:25 Test Item Value Reference Range Interpretation Comments CALCIUM IONIZED (BEAKER) (test 1.08 mmol/L 1.12-1.27 L code = 698) PH, BLOOD (BEAKER) (test code = 7.45 1810) POCT-GLUCOSE [id number] 21:36:08 Test Item Value Reference Range Interpretation Comments POC-GLUCOSE METER 118 mg/dL 70-110 H : TESTED A T [facility] 6720 ([facility]) (test code = [facility], 1538) 40[address]: Creative Writing English Professor/Techni angelique ID = [id number] for BRAYAN SCHMIDT POCT-GLUCOSE [id number] 17:42:12 Test Item Value Reference Range Interpretation Comments POC-GLUCOSE METER 97 mg/dL 70-110 : TESTED A T [facility] 6720 ([facility]) (test code = [facility], 1538) 89[address]: Creative Writing English Professor/Techni angelique ID = [id number] for ZainRichy marioiana POCT-GLUCOSE [id number] 13:16:34 Test Item Value Reference Range Interpretation Comments POC-GLUCOSE METER 115 mg/dL 70-110 H : TESTED A T [facility] 6720 ([facility]) (test code = [facility], 1538) 714[address]: Creative Writing English Professor/Techni angelique ID = [id number] for Ray, Melissa POCT-GLUCOSE [id number] 08:26:04 Test Item Value Reference Range Interpretation Comments POC-GLUCOSE METER 85 mg/dL 70-110 : [facility] (test code = [facility], 1538) 515[address]: Creative Writing English Professor/Techni angelique ID = [id number] for Zain da, Melissa RAD, CHEST, 1 VIEW, NON [id number] 07:35:00Reason for exam:->s/p ACBShould this be performed at the bedside?->Yes [facility] : 1940 Sex: MFINAL REPORT RAD, CHEST, 1 VIEW, NON DEPT INDICATION: s/p ACB COMPARISON: Prior day's exam FINDINGS: Portable frontal view of the chest. IMPRESSION: Support Lines: Thoracostomy tubes have been removed. Right IJ central venous catheter has been removed. Lungs and pleura: Stable basilar subsegmental atelectasis and small left effusion. Trace bilateral apical pneumothoraces.Heart and mediastinum: Stable contours. Stable surgical changes.Additional findings: None. Signed: JR Graf Robert MDReport Verified Date/Time: 12/11/2020 07:35:25 Reading Location: [facility] Radiology Reading Room CBC W/PLT COUNT & AUTO [id number] 06:01:06 Test Item Value Reference Range Interpretation Comments WHITE BLOOD CELL COUNT (BEAKER) 18.6 K/ L 3.5-10.5 H (test code = 775) RED BLOOD CELL COUNT (BEAKER) 3.26 M/ L 4.63-6.08 L (test code = 761) HEMOGLOBIN (BEAKER) (test code = 10.4 GM/DL 13.7-17.5 L 410) HEMATOCRIT (BEAKER) (test code = 31.5 % 40.1-51.0 L 411) MEAN CORPUSCULAR VOLUME (BEAKER) 96.6 fL 79.0-92.2 H (test code = 753) MEAN CORPUSCULAR HEMOGLOBIN 31.9 pg 25.7-32.2 (BEAKER) (test code = 751) MEAN CORPUSCULAR HEMOGLOBIN CONC 33.0 GM/DL 32.3-36.5 (BEAKER) (test code = 752) RED CELL DISTRIBUTION WIDTH 15.3 % 11.6-14.4 H (BEAKER) (test code = 412) PLATELET COUNT (BEAKER) (test code 78 K/CU MM 150-450 L = 756) MEAN PLATELET VOLUME (BEAKER) 12.3 fL 9.4-12.4 (test code = 754) NUCLEATED RED BLOOD CELLS (BEAKER) 0 /100 WBC 0-0 (test code = 413) NEUTROPHILS RELATIVE PERCENT 81 % (BEAKER) (test code = 429) LYMPHOCYTES RELATIVE PERCENT 10 % (BEAKER) (test code = 430) MONOCYTES RELATIVE PERCENT 7 % (BEAKER) (test code = 431) EOSINOPHILS RELATIVE PERCENT 1 % (BEAKER) (test code = 432) BASOPHILS RELATIVE PERCENT 0 % (BEAKER) (test code = 437) NEUTROPHILS ABSOLUTE COUNT 15.15 K/ L 1.78-5.38 H (BEAKER) (test code = 670) LYMPHOCYTES ABSOLUTE COUNT 1.85 K/ L 1.32-3.57 (BEAKER) (test code = 414) MONOCYTES ABSOLUTE COUNT (BEAKER) 1.34 K/ L 0.30-0.82 H (test code = 415) EOSINOPHILS ABSOLUTE COUNT 0.09 K/ L 0.04-0.54 (BEAKER) (test code = 416) BASOPHILS ABSOLUTE COUNT (BEAKER) 0.06 K/ L 0.01-0.08 (test code = 417) IMMATURE GRANULOCYTES-RELATIVE 1 % 0-1 PERCENT (BEAKER) (test code = 2801) No platelet clumps [id number] 05:44:32 Test Item Value Reference Range Interpretation Comments PHOSPHORUS (BEAKER) 3.3 mg/dL 2.3-4.7 Specimen slightly (test code = 604) hemolyzed Creative Writing English Professor ID - NISSA WBASIC METABOLIC [id number] 05:44:32 Test Item Value Reference Range Interpretation Comments SODIUM (BEAKER) 139 meq/L 136-145 (test code = 381) POTASSIUM (BEAKER) 4.9 meq/L 3.5-5.1 Specimen slightly (test code = 379) hemolyzed CHLORIDE (BEAKER) 106 meq/L 98-107 (test code = 382) CO2 (BEAKER) (test 25 meq/L 22-29 code = 355) BLOOD UREA NITROGEN 10 mg/dL 7-21 (BEAKER) (test code = 354) CREATININE (BEAKER) 0.75 mg/dL 0.57-1.25 Specimen slightly (test code = 358) hemolyzed GLUCOSE RANDOM 96 mg/dL 70-105 (BEAKER) (test code = 652) CALCIUM (BEAKER) 8.1 mg/dL 8.4-10.2 L (test code = 697) EGFR (BEAKER) (test 100 mL/min/1.73 ESTIM ATED GFR IS code = 1092) sq m NOT ACCURATE CREATININE CLEARANCE IN PREDICTING GLOMERULAR FILTRATION RATE . ESTIMATED GFR I S NOT APPLICABLE FOR DIALYSIS PATIEN TS. Creative Writing English Professor ID - NISSA [id number] 05:44:31 Test Item Value Reference Range Interpretation Comments MAGNESIUM (BEAKER) 2.0 mg/dL 1.6-2.6 Specimen slightly (test code = 627) hemolyzed Creative Writing English Professor ID Huan AZAR WCALCIUM, [id number] 05:08:29 Test Item Value Reference Range Interpretation Comments CALCIUM IONIZED (BEAKER) (test 1.00 mmol/L 1.12-1.27 L code = 698) PH, BLOOD (BEAKER) (test code = 7.39 1810) POCT-GLUCOSE [id number] 20:46:27 Test Item Value Reference Range Interpretation Comments POC-GLUCOSE METER 127 mg/dL 70-110 H : TESTED A T [facility] 6720 (BEAKER) (test code = [facility] [place], 1538) [address]: Creative Writing English Professor/Techni angelique ID = [id number] for Re yes, Sairy MISCELLANEOUS LAB [id number] 10:34:48 Test Item Value Reference Range Interpretation Comments SCAN RESULT (test code = 9652574) See scanned reportLACTIC ACID, [id number] 10:13:47 Test Item Value Reference Range Interpretation Comments LACTATE BLOOD ARTERIAL (2) 4.2 mmol/L 0.5-2.2 HH (BEAKER) (test code = 2874) Creative Writing English Professor ID - RIKA [id number] 09:57:04 Test Item Value Reference Range Interpretation Comments PHOSPHORUS (BEAKER) (test code = 4.7 mg/dL 2.3-4.7 604) Creative Writing English Professor ID - RIKA [id number] 09:57:03 Test Item Value Reference Range Interpretation Comments MAGNESIUM (BEAKER) (test code = 2.1 mg/dL 1.6-2.6 627) Creative Writing English Professor ID - RIKA MBASIC METABOLIC [id number] 09:57:02 Test Item Value Reference Range Interpretation Comments SODIUM (BEAKER) 143 meq/L 136-145 (test code = 381) POTASSIUM (BEAKER) 4.8 meq/L 3.5-5.1 (test code = 379) CHLORIDE (BEAKER) 109 meq/L 98-107 H (test code = 382) CO2 (BEAKER) (test 24 meq/L 22-29 code = 355) BLOOD UREA NITROGEN 11 mg/dL 7-21 (BEAKER) (test code = 354) CREATININE (BEAKER) 1.02 mg/dL 0.57-1.25 (test code = 358) GLUCOSE RANDOM 186 mg/dL 70-105 H (BEAKER) (test code = 652) CALCIUM (BEAKER) 8.7 mg/dL 8.4-10.2 (test code = 697) EGFR (BEAKER) (test 70 mL/min/1.73 ESTIMA WALDO GFR IS code = 1092) sq m NOT ACCURATE CREATININE CLEARANCE IN PREDICTING GLOMERULAR FILTRATION RATE . ESTIMATED GFR I S NOT APPLICABLE FOR DIALYSIS PATIEN TS. Creative Writing English Professor ID - RIKA [id number] 06:37:55 Test Item Value Reference Range Interpretation Comments ACTIVATED CLOTTING TIME 109 sec : 74 -137 seconds, (BEAKER) (test code = Baseli ne: TESTED AT 441) [address], [facility] 30: Creative Writing English Professor/Techni angelique ID = [id number] for Cu rtis, Paul [id number] 06:37:55 Test Item Value Reference Range Interpretation Comments ACTIVATED CLOTTING TIME 576 sec : 74 -137 seconds, (BEAKER) (test code = Baseli ne: TESTED AT 441) [address], 770 30: Creative Writing English Professor/Techni angelique ID = [id number] for Cu rtis, Paul [id number] 06:37:54 Test Item Value Reference Range Interpretation Comments ACTIVATED CLOTTING TIME 494 sec : 74 -137 seconds, (BEAKER) (test code = Baseli ne: TESTED AT 441) [address], 770 30: Creative Writing English Professor/Techni angelique ID = [id number] for Cu rtis, Paul [id number] 06:37:53 Test Item Value Reference Range Interpretation Comments ACTIVATED CLOTTING TIME 532 sec : 74 -137 seconds, (BEAKER) (test code = Baseli ne: TESTED AT 441) [address], [facility] 30: Creative Writing English Professor/Techni angelique ID = [id number] for Cu rtis, Paul POCT-GLUCOSE [id number] 06:07:20 Test Item Value Reference Range Interpretation Comments POC-GLUCOSE METER 154 mg/dL 70-110 H : Notified RN/MD: (RODO) (test code = TESTED AT [facility] [id number]) [place], [address]: Creative Writing English Professor/Techni angelique ID = [id number] for Cata Delarosa RAD, CHEST, 1 VIEW, NON [id number] 04:54:00Reason for exam:->s/p ACBShould this be performed at the bedside?->Yes [facility] : 1940 Sex: MFINAL REPORT RAD, CHEST, 1 VIEW, NON DEPT INDICATION: s/p ACB COMPARISON: Prior day's exam FINDINGS: Portable frontal view of the chest. IMPRESSION: Support Lines: Possible extubationand removal of the enteric tube. Otherwise, stable. Lungs and pleura: Unchanged bibasilar atelectasis and small left pleural effusion. No pneumothorax. Heart and mediastinum: Stable contours. Additional findings: None. Signed: Jaylin Benitez MDRepmoberly regional [facility] Verified Date/Time: 12/10/2020 04:54:17 LACTIC ACID, [id number] 04:41:11 Test Item Value Reference Range Interpretation Comments LACTATE BLOOD 8.6 mmol/L 0.5-2.2 HH Specimen sligh tly ARTERIAL (2) (BEAKER) hemoly zed (test code = 2874) Creative Writing English Professor ID - RIKA [id number] 04:40:45 Test Item Value Reference Range Interpretation Comments PHOSPHORUS (BEAKER) 1.5 mg/dL 2.3-4.7 LL Specimen slightly (test code = 604) hemolyzed Creative Writing English Professor ID - RIKA Siegel(CELLAVISION MANUAL DIFF)2020-12-10 04:34:55 Test Item Value Reference Range Interpretation Comments NEUTROPHILS - REL 90 % (CELLAVISION)(BEAKER) (test code = 2816) MONOCYTES - REL 3 % (CELLAVISION)(BEAKER) (test code = 2818) BANDS - REL (CELLAVISION)(BEAKER) 7 % 0-10 (test code = 2826) NEUTROPHILS - ABS 19.35 K/ul 1.78-5.38 H (CELLAVISION)(BEAKER) (test code = 2830) MONOCYTES - ABS 0.65 K/uL 0.30-0.82 (CELLAVISION)(BEAKER) (test code = 2832) BANDS - ABS (CELLAVISION)(BEAKER) 1.51 K/uL 0.00-0.80 H (test code = 2840) TOTAL COUNTED (BEAKER) (test code 100 = 1351) RBC MORPHOLOGY (BEAKER) (test code Normal = 762) WBC MORPHOLOGY (BEAKER) (test code Normal = 487) GIANT PLATELETS (BEAKER) (test Present code = 313) ARTIFACT (CELLAVISION)(BEAKER) Present (test code = 3432) PLATELET CONCENTRATION Decreased (CELLAVISION)(BEAKER) (test code = 3438) Creative Writing English Professor ID - Carlos comments: Slide comments:CBC W/PLT COUNT & AUTO [id number] 04:34:53 Test Item Value Reference Range Interpretation Comments WHITE BLOOD CELL COUNT 21.5 K/ L 3.5-10.5 H (BEAKER) (test code = 775) RED BLOOD CELL COUNT 3.50 M/ L 4.63-6.08 L (BEAKER) (test code = 761) HEMOGLOBIN (BEAKER) 11.3 GM/DL 13.7-17.5 L Discorda nt with (test code = 410) previous results,clinica l correlation is required. HEMATOCRIT (BEAKER) 34.2 % 40.1-51.0 L (test code = 411) MEAN CORPUSCULAR 97.7 fL 79.0-92.2 H VOLUME (BEAKER) (test code = 753) MEAN CORPUSCULAR 32.3 pg 25.7-32.2 H HEMOGLOBIN (BEAKER) (test code = 751) MEAN CORPUSCULAR 33.0 GM/DL 32.3-36.5 HEMOGLOBIN CONC (BEAKER) (test code = 752) RED CELL DISTRIBUTION 15.9 % 11.6-14.4 H WIDTH (BEAKER) (test code = 412) PLATELET COUNT 105 K/CU MM 150-450 L (BEAKER) (test code = 756) MEAN PLATELET VOLUME 11.0 fL 9.4-12.4 (BEAKER) (test code = 754) NUCLEATED RED BLOOD 0 /100 WBC 0-0 CELLS (BEAKER) (test code = 413) BASIC METABOLIC [id number] 04:25:45 Test Item Value Reference Range Interpretation Comments SODIUM (BEAKER) 146 meq/L 136-145 H (test code = 381) POTASSIUM (BEAKER) 4.0 meq/L 3.5-5.1 Specimen slightly (test code = 379) hemolyzed CHLORIDE (BEAKER) 112 meq/L 98-107 H (test code = 382) CO2 (BEAKER) (test 20 meq/L 22-29 L code = 355) BLOOD UREA NITROGEN 11 mg/dL 7-21 (BEAKER) (test code = 354) CREATININE (BEAKER) 1.03 mg/dL 0.57-1.25 Specimen slightly (test code = 358) hemolyzed GLUCOSE RANDOM 189 mg/dL 70-105 H (BEAKER) (test code = 652) CALCIUM (BEAKER) 7.7 mg/dL 8.4-10.2 L (test code = 697) EGFR (BEAKER) (test 69 mL/min/1.73 ESTIMA WALDO GFR IS code = 1092) sq m NOT ACCURATE CREATININE CLEARANCE IN PREDICTING GLOMERULAR FILTRATION RATE . ESTIMATED GFR I S NOT APPLICABLE FOR DIALYSIS PATIEN TS. Creative Writing English Professor ID - RIKA [id number] 04:03:53 Test Item Value Reference Range Interpretation Comments MAGNESIUM (BEAKER) 1.7 mg/dL 1.6-2.6 Specimen slightly (test code = 627) hemolyzed Creative Writing English Professor ID - RIKA MBLOOD GAS, [id number] 03:56:55 Test Item Value Reference Range Interpretation Comments PH ARTERIAL (BEAKER) (test code = 7.44 7.35-7.45 383) PCO2 ARTERIAL (BEAKER) (test code 38 mm Hg 35-45 = 384) PO2 ARTERIAL (BEAKER) (test code = 116 mm Hg 80-90 H 385) O2 SATURATION ARTERIAL (BEAKER) 98.4 % 96.0-97.0 H (test code = 386) HCO3 ARTERIAL (BEAKER) (test code 26 mmol/L 21-29 = 388) BASE EXCESS ARTERIAL (BEAKER) 1.4 mmol/L -2.0-3.0 (test code = 387) PATIENT TEMPERATURE (BEAKER) (test 36.5 code = 1818) FIO2 (BEAKER) (test code = 1819) 40.0 CALCIUM, [id number] 03:56:54 Test Item Value Reference Range Interpretation Comments CALCIUM IONIZED (BEAKER) (test 1.02 mmol/L 1.12-1.27 L code = 698) PH, BLOOD (BEAKER) (test code = 7.44 1810) LACTIC ACID, [id number] 01:29:04 Test Item Value Reference Range Interpretation Comments LACTATE BLOOD 9.2 mmol/L 0.5-2.2 HH Specimen sligh tly ARTERIAL (2) (BEAKER) hemoly zed (test code = 2874) Creative Writing English Professor ID - PIAYA LPOCT-GLUCOSE [id number] 00:06:08 Test Item Value Reference Range Interpretation Comments POC-GLUCOSE METER 129 mg/dL 70-110 H : Notified RN/MD: (BEAKER) (test code = TESTED AT [facility] [id number] [id number]) [facility], [address]: Creative Writing English Professor/Techni angelique ID = [id number] for Cata Delarosa BLOOD GAS, [id number] 23:00:14 Test Item Value Reference Range Interpretation Comments PH ARTERIAL (BEAKER) (test code = 7.37 7.35-7.45 383) PCO2 ARTERIAL (BEAKER) (test code 36 mm Hg 35-45 = 384) PO2 ARTERIAL (BEAKER) (test code 83 mm Hg 80-90 = 385) O2 SATURATION ARTERIAL (BEAKER) 96.0 % 96.0-97.0 (test code = 386) HCO3 ARTERIAL (BEAKER) (test code 20 mmol/L 21-29 L = 388) BASE EXCESS ARTERIAL (BEAKER) -4.8 mmol/L -2.0-3.0 L (test code = 387) PATIENT TEMPERATURE (BEAKER) 36.7 (test code = 1818) FIO2 (BEAKER) (test code = 1819) 40.0 LACTIC ACID, [id number] 21:41:20 Test Item Value Reference Range Interpretation Comments LACTATE BLOOD ARTERIAL (2) 11.8 mmol/L 0.5-2.2 HH (BEAKER) (test code = 2874) Creative Writing English Professor ID - BSBLOOD GAS, [id number] 21:26:06 Test Item Value Reference Range Interpretation Comments PH ARTERIAL (BEAKER) (test code = 7.44 7.35-7.45 383) PCO2 ARTERIAL (BEAKER) (test code 33 mm Hg 35-45 L = 384) PO2 ARTERIAL (BEAKER) (test code 81 mm Hg 80-90 = 385) O2 SATURATION ARTERIAL (BEAKER) 96.5 % 96.0-97.0 (test code = 386) HCO3 ARTERIAL (BEAKER) (test code 21 mmol/L 21-29 = 388) BASE EXCESS ARTERIAL (BEAKER) -2.2 mmol/L -2.0-3.0 L (test code = 387) PATIENT TEMPERATURE (BEAKER) 36.7 (test code = 1818) FIO2 (BEAKER) (test code = 1819) 40.0 LACTIC ACID, [id number] 20:31:08 Test Item Value Reference Range Interpretation Comments LACTATE BLOOD 9.5 mmol/L 0.5-2.2 HH Specimen sligh tly ARTERIAL (2) (BEAKER) hemoly zed (test code = 2874) Creative Writing English Professor ID - BSBLOOD GAS, [id number] 19:39:35 Test Item Value Reference Range Interpretation Comments PH ARTERIAL (BEAKER) (test code = 7.40 7.35-7.45 383) PCO2 ARTERIAL (BEAKER) (test code 31 mm Hg 35-45 L = 384) PO2 ARTERIAL (BEAKER) (test code 114 mm Hg 80-90 H = 385) O2 SATURATION ARTERIAL (BEAKER) 98.5 % 96.0-97.0 H (test code = 386) HCO3 ARTERIAL (BEAKER) (test code 19 mmol/L 21-29 L = 388) BASE EXCESS ARTERIAL (BEAKER) -5.1 mmol/L -2.0-3.0 L (test code = 387) PATIENT TEMPERATURE (BEAKER) 35.0 (test code = 1818) FIO2 (BEAKER) (test code = 1819) 40.0 POCT-GLUCOSE [id number] 18:47:32 Test Item Value Reference Range Interpretation Comments POC-GLUCOSE METER 163 mg/dL 70-110 H : TESTED A T [facility] 6720 (BEAKER) (test code = KHANH Muniz [place], 1538) [id number]: Creative Writing English Professor/Techni angelique ID = [id number] for Guillermo Almazan BLOOD GAS, [id number] 18:30:34 Test Item Value Reference Range Interpretation Comments PH ARTERIAL (BEAKER) (test code = 7.32 7.35-7.45 L 383) PCO2 ARTERIAL (BEAKER) (test code 34 mm Hg 35-45 L = 384) PO2 ARTERIAL (BEAKER) (test code 154 mm Hg 80-90 H = 385) O2 SATURATION ARTERIAL (BEAKER) 98.9 % 96.0-97.0 H (test code = 386) HCO3 ARTERIAL (BEAKER) (test code 18 mmol/L 21-29 L = 388) BASE EXCESS ARTERIAL (BEAKER) -8.2 mmol/L -2.0-3.0 L (test code = 387) PATIENT TEMPERATURE (BEAKER) 35.0 (test code = 1818) FIO2 (BEAKER) (test code = 1819) 40.0 LACTIC ACID, [id number] 18:28:56 Test Item Value Reference Range Interpretation Comments LACTATE BLOOD 7.7 mmol/L 0.5-2.2 HH Specimen sligh tly ARTERIAL (2) (BEAKER) hemoly zed (test code = 2874) Creative Writing English Professor ID - BSRAD, CHEST, 1 VIEW, NON [id number] 17:02:00Reason for exam:- >s/p ACBShould this be performed at the bedside?->Yes [facility] : 1940 Sex: MFINAL REPORT RAD, CHEST, 1 VIEW, NON DEPT TECHNIQUE: Frontal view(s) of the chest.INDICATION: s/p ACB. COMPARISON: None FINDINGS/IMPRESSION: Lines/Tubes: Endotracheal tube tip 6 cm above the [place]. Transesophageal tube courses below the diaphragm and terminates in the proximal stomach with sidehole at the gastroesophageal junction. A lateral chest tubes. Right transjugular catheter tip at the lower SVC. Lungs/pleura: Suggestion of mild interstitial edema. No pleural effusion. No pneumothorax. Heart and Mediastinum: Unremarkable. Soft Tissues and Bones: Median sternotomy wires. Signed: Cassandra Julianday [facility] Verified Date/Time: 12/09/2020 17:02:18 Reading Location: [address] Consult Reading Room LACTIC ACID, [id number] 16:41:13 Test Item Value Reference Range Interpretation Comments LACTATE BLOOD 4.4 mmol/L 0.5-2.2 HH Specimen moder ately ARTERIAL (2) (BEAKER) hemoly zed (test code = 2874) Creative Writing English Professor ID - BSBASIC METABOLIC [id number] 16:35:58 Test Item Value Reference Range Interpretation Comments SODIUM (BEAKER) 141 meq/L 136-145 (test code = 381) POTASSIUM (BEAKER) 4.1 meq/L 3.5-5.1 Specimen moderately (test code = 379) hemolyzed CHLORIDE (BEAKER) 114 meq/L 98-107 H (test code = 382) CO2 (BEAKER) (test 19 meq/L 22-29 L code = 355) BLOOD UREA NITROGEN 10 mg/dL 7-21 (BEAKER) (test code = 354) CREATININE (BEAKER) 0.91 mg/dL 0.57-1.25 Specimen moderately (test code = 358) hemolyzed GLUCOSE RANDOM 189 mg/dL 70-105 H (BEAKER) (test code = 652) CALCIUM (BEAKER) 9.8 mg/dL 8.4-10.2 (test code = 697) EGFR (BEAKER) (test 80 mL/min/1.73 ESTIMA WALDO GFR IS code = 1092) sq m NOT ACCURATE CREATININE CLEARANCE IN PREDICTING GLOMERULAR FILTRATION RATE . ESTIMATED GFR I S NOT APPLICABLE FOR DIALYSIS PATIEN TS. Creative Writing English Professor ID - [id number] 16:35:57 Test Item Value Reference Range Interpretation Comments MAGNESIUM (BEAKER) 1.9 mg/dL 1.6-2.6 Specimen moderately (test code = 627) hemolyzed Creative Writing English Professor ID - [id number] 16:30:14 Test Item Value Reference Range Interpretation Comments FIBRINOGEN LEVEL (BEAKER) (test 219 mg/dl 225-434 L code = 658) [id number] 16:30:14 Test Item Value Reference Range Interpretation Comments PARTIAL THROMBOPLASTIN TIME 30.3 seconds 22.5-36.0 (BEAKER) (test code = 760) PROTHROMBIN [id number] 16:29:34 Test Item Value Reference Range Interpretation Comments PROTIME (BEAKER) 20.1 seconds 11.9-14.2 H (test code = 759) INR (BEAKER) (test 1.74 See_Comment [Automat ed message] code = 370) The system Impraise generated this result transmitted ref erence range: <=5.90. The reference range was not used to int erpret this result as normal/abnormal . RECOMMENDED COUMADIN/WARFARIN INR THERAPY RANGESSTANDARD DOSE: 2.0 - 3.0 Includes: PROPHYLAXIS for venous thrombosis, systemic embolization; TREATMENT for venous thrombosis and/or pulmonary embolus.HIGH RISK: Target INR is 2.5-3.5 for patients with mechanical heart valves.CBC (HEMOGRAM ONLY)2020-12-09 16:19:51 Test Item Value Reference Range Interpretation Comments WHITE BLOOD CELL COUNT (BEAKER) 30.0 K/ L 3.5-10.5 H (test code = 775) RED BLOOD CELL COUNT (BEAKER) 4.27 M/ L 4.63-6.08 L (test code = 761) HEMOGLOBIN (BEAKER) (test code = 13.7 GM/DL 13.7-17.5 410) HEMATOCRIT (BEAKER) (test code = 42.1 % 40.1-51.0 411) MEAN CORPUSCULAR VOLUME (BEAKER) 98.6 fL 79.0-92.2 H (test code = 753) MEAN CORPUSCULAR HEMOGLOBIN 32.1 pg 25.7-32.2 (BEAKER) (test code = 751) MEAN CORPUSCULAR HEMOGLOBIN CONC 32.5 GM/DL 32.3-36.5 (BEAKER) (test code = 752) RED CELL DISTRIBUTION WIDTH 15.6 % 11.6-14.4 H (BEAKER) (test code = 412) PLATELET COUNT (BEAKER) (test code 94 K/CU MM 150-450 L = 756) MEAN PLATELET VOLUME (BEAKER) 9.5 fL 9.4-12.4 (test code = 754) NUCLEATED RED BLOOD CELLS (BEAKER) 0 /100 WBC 0-0 (test code = 413) GLUCOSE-STAT [id number] 16:11:14 Test Item Value Reference Range Interpretation Comments GLUCOSE RANDOM (BEAKER) (test code 170 mg/dL 70-110 H = 652) HGB/HCT (H&H) - STAT [id number] 16:11:14 Test Item Value Reference Range Interpretation Comments HEMOGLOBIN (BEAKER) (test code = 14.8 GM/DL 13.0-16.8 410) HEMATOCRIT (BEAKER) (test code = 44.0 % 40.0-50.0 411) BLOOD GAS, [id number] 16:11:07 Test Item Value Reference Range Interpretation Comments PH ARTERIAL (BEAKER) (test code = 7.36 7.35-7.45 383) PCO2 ARTERIAL (BEAKER) (test code 35 mm Hg 35-45 = 384) PO2 ARTERIAL (BEAKER) (test code 181 mm Hg 80-90 H = 385) O2 SATURATION ARTERIAL (BEAKER) 99.2 % 96.0-97.0 H (test code = 386) HCO3 ARTERIAL (BEAKER) (test code 19 mmol/L 21-29 L = 388) BASE EXCESS ARTERIAL (BEAKER) -5.9 mmol/L -2.0-3.0 L (test code = 387) PATIENT TEMPERATURE (BEAKER) 36.4 (test code = 1818) FIO2 (BEAKER) (test code = 1819) 60.0 POTASSIUM-STAT [id number] 16:10:10 Test Item Value Reference Range Interpretation Comments POTASSIUM (BEAKER) (test code = 3.7 meq/L 3.6-5.5 379) SODIUM NA-STAT [id number] 16:10:09 Test Item Value Reference Range Interpretation Comments SODIUM (BEAKER) (test code = 381) 138 meq/L 136-145 CALCIUM, [id number] 16:09:04 Test Item Value Reference Range Interpretation Comments CALCIUM IONIZED (BEAKER) (test 1.25 mmol/L 1.12-1.27 code = 698) PH, BLOOD (BEAKER) (test code = 7.34 1809) OXYGEN SATURATION, [id number] 16:08:44 Test Item Value Reference Range Interpretation Comments O2 SATURATION (MEASURED) (BEAKER) 88.4 % (test code = 1455) CALCIUM, [id number] 14:23:36 Test Item Value Reference Range Interpretation Comments CALCIUM IONIZED (BEAKER) (test 1.00 mmol/L 1.12-1.27 L code = 698) PH, BLOOD (BEAKER) (test code = 7.40 1809) HGB/HCT (H&H) - STAT [id number] 14:22:39 Test Item Value Reference Range Interpretation Comments HEMOGLOBIN (BEAKER) (test code = 10.8 GM/DL 13.0-16.8 L 410) HEMATOCRIT (BEAKER) (test code = 32.0 % 40.0-50.0 L 411) BLOOD GAS, [id number] 14:22:39 Test Item Value Reference Range Interpretation Comments PH ARTERIAL (BEAKER) (test code = 7.42 7.35-7.45 383) PCO2 ARTERIAL (BEAKER) (test code 35 mm Hg 35-45 = 384) PO2 ARTERIAL (BEAKER) (test code 393 mm Hg 80-90 H = 385) O2 SATURATION ARTERIAL (BEAKER) 99.8 % 96.0-97.0 H (test code = 386) HCO3 ARTERIAL (BEAKER) (test code 22 mmol/L 21-29 = 388) BASE EXCESS ARTERIAL (BEAKER) -2.1 mmol/L -2.0-3.0 L (test code = 387) PATIENT TEMPERATURE (BEAKER) 35.4 (test code = 1818) FIO2 (BEAKER) (test code = 1819) 100.0 GLUCOSE-STAT [id number] 14:22:38 Test Item Value Reference Range Interpretation Comments GLUCOSE RANDOM (BEAKER) (test code 212 mg/dL 70-110 H = 652) POTASSIUM-STAT [id number] 14:22:23 Test Item Value Reference Range Interpretation Comments POTASSIUM (BEAKER) (test code = 4.4 meq/L 3.6-5.5 379) SODIUM NA-STAT [id number] 14:22:22 Test Item Value Reference Range Interpretation Comments SODIUM (BEAKER) (test code = 381) 135 meq/L 136-145 L POTASSIUM-STAT [id number] 13:41:42 Test Item Value Reference Range Interpretation Comments POTASSIUM (BEAKER) (test code = 6.3 meq/L 3.6-5.5 HH 379) SODIUM NA-STAT [id number] 13:41:09 Test Item Value Reference Range Interpretation Comments SODIUM (BEAKER) (test code = 381) 134 meq/L 136-145 L HGB/HCT (H&H) - STAT [id number] 13:41:07 Test Item Value Reference Range Interpretation Comments HEMOGLOBIN (BEAKER) (test code = 9.9 GM/DL 13.0-16.8 L 410) HEMATOCRIT (BEAKER) (test code = 29.0 % 40.0-50.0 L 411) GLUCOSE-STAT [id number] 13:41:04 Test Item Value Reference Range Interpretation Comments GLUCOSE RANDOM (BEAKER) (test code 251 mg/dL 70-110 H = 652) BLOOD GAS, [id number] 13:40:58 Test Item Value Reference Range Interpretation Comments PH ARTERIAL (BEAKER) (test code = 7.43 7.35-7.45 383) PCO2 ARTERIAL (BEAKER) (test code 38 mm Hg 35-45 = 384) PO2 ARTERIAL (BEAKER) (test code = 331 mm Hg 80-90 H 385) O2 SATURATION ARTERIAL (BEAKER) 99.8 % 96.0-97.0 H (test code = 386) HCO3 ARTERIAL (BEAKER) (test code 25 mmol/L 21-29 = 388) BASE EXCESS ARTERIAL (BEAKER) 0.2 mmol/L -2.0-3.0 (test code = 387) PATIENT TEMPERATURE (BEAKER) (test 34.1 code = 1818) FIO2 (BEAKER) (test code = 1819) 85.0 GLUCOSE-STAT [id number] 13:13:38 Test Item Value Reference Range Interpretation Comments GLUCOSE RANDOM (BEAKER) (test code 167 mg/dL 70-110 H = 652) HGB/HCT (H&H) - STAT [id number] 13:13:38 Test Item Value Reference Range Interpretation Comments HEMOGLOBIN (BEAKER) (test code = 10.2 GM/DL 13.0-16.8 L 410) HEMATOCRIT (BEAKER) (test code = 30.0 % 40.0-50.0 L 411) BLOOD GAS, [id number] 13:13:37 Test Item Value Reference Range Interpretation Comments PH ARTERIAL (BEAKER) (test code = 7.37 7.35-7.45 383) PCO2 ARTERIAL (BEAKER) (test code 31 mm Hg 35-45 L = 384) PO2 ARTERIAL (BEAKER) (test code 423 mm Hg 80-90 H = 385) O2 SATURATION ARTERIAL (BEAKER) 99.8 % 96.0-97.0 H (test code = 386) HCO3 ARTERIAL (BEAKER) (test code 19 mmol/L 21-29 L = 388) BASE EXCESS ARTERIAL (BEAKER) -6.9 mmol/L -2.0-3.0 L (test code = 387) PATIENT TEMPERATURE (BEAKER) 33.6 (test code = 1818) FIO2 (BEAKER) (test code = 1819) 100.0 SODIUM NA-STAT [id number] 13:13:37 Test Item Value Reference Range Interpretation Comments SODIUM (BEAKER) (test code = 381) 132 meq/L 136-145 L POTASSIUM-STAT [id number] 13:12:19 Test Item Value Reference Range Interpretation Comments POTASSIUM (BEAKER) (test code = 4.6 meq/L 3.6-5.5 379) GLUCOSE-STAT [id number] 11:55:15 Test Item Value Reference Range Interpretation Comments GLUCOSE RANDOM (BEAKER) (test code 113 mg/dL 70-110 H = 652) CALCIUM, [id number] 11:55:09 Test Item Value Reference Range Interpretation Comments CALCIUM IONIZED (BEAKER) (test 1.11 mmol/L 1.12-1.27 L code = 698) PH, BLOOD (BEAKER) (test code = 7.47 1810) BLOOD GAS, [id number] 11:55:09 Test Item Value Reference Range Interpretation Comments PH ARTERIAL (BEAKER) (test code = 7.49 7.35-7.45 H 383) PCO2 ARTERIAL (BEAKER) (test code 32 mm Hg 35-45 L = 384) PO2 ARTERIAL (BEAKER) (test code = 498 mm Hg 80-90 H 385) O2 SATURATION ARTERIAL (BEAKER) 99.9 % 96.0-97.0 H (test code = 386) HCO3 ARTERIAL (BEAKER) (test code 24 mmol/L 21-29 = 388) BASE EXCESS ARTERIAL (BEAKER) 1.0 mmol/L -2.0-3.0 (test code = 387) PATIENT TEMPERATURE (BEAKER) (test 35.2 code = 1818) FIO2 (BEAKER) (test code = 1819) 100.0 POTASSIUM-STAT [id number] 11:53:15 Test Item Value Reference Range Interpretation Comments POTASSIUM (BEAKER) (test code = 4.5 meq/L 3.6-5.5 379) HGB/HCT (H&H) - STAT [id number] 11:53:15 Test Item Value Reference Range Interpretation Comments HEMOGLOBIN (BEAKER) (test code = 14.0 GM/DL 13.0-16.8 410) HEMATOCRIT (BEAKER) (test code = 41.0 % 40.0-50.0 411) SODIUM NA-STAT [id number] 11:53:14 Test Item Value Reference Range Interpretation Comments SODIUM (BEAKER) (test code = 381) 136 meq/L 136-145 POCT-GLUCOSE [id number] 09:01:49 Test Item Value Reference Range Interpretation Comments POC-GLUCOSE METER 97 mg/dL 70-110 : TESTED A T [facility] 6720 (BEAKER) (test code = [place], 1538) [id number]: Creative Writing English Professor/Techni angelique ID = [id number] for SLY AVERY CT, CTA, [id number] 18:01:00With and without IV contrast With and without IV contrast Unlisted Reason for Exam - Click Yes and Enter Reason Below->Yes Unlisted Reason for Exam->Assessment of cardiac structures to sternum, and assess patency of internal mammary artery. [facility] : 1940 Sex: MAddendum BeginsREPORT STATUS:A I have reviewed the CT images for this study and I concur with the nonvascular imaging findings as dictated. Signed: Cony Floyd MDReport Verified Date/Time: 12/08/2020 18:01:07 Reading Location: [place] [address] Angio Body Reading RoomAddendum EndsFINAL REPORT CTA Aorta - Chest: 11/30/2020 2:37 PM. Comparison: None available. History: 80 years old Male with HTN, HLD, CAD s/p CABG x1 in 2012, ND s/p PCI, DVT, and PE, now coming for surgical evaluation of severe CAD and planning CABG. Evaluated for patency of FOY. Indication: There is clinical need to define thoracic aortic anatomy. Technique: Multi-detector CT technology was employed (S[employer]ens Somatom Force scanner). Spiral acquisition before and during intravenous contrast administration. Images were obtained before and during the dynamic passage of intravenous contrast material. Multi-planar 3-D volume- rendering reconstruction was performed using an independent workstation inte ractively by the interpreting physician as well as the 3-D specialist for optimal visualization of the thoracic aorta as well as its proximal branches. Please refer to the contrast sheet scanned in theEPIC system for the amount and route of contrast given. This exam was performed according to our departmental dose-optimization programme, which includes automated exposure control, adjustment of the mA and/or kV according to patient size and/or use of iterative reconstruction technique. Dose modulation, iterative reconstruction, and/or weight based adjustment of the mA/kV was utilized to reduce the radiation dose to as low as reasonably achievable. RESULT:Potential study limitations: None. CHEST: The visualized thyroid gland appears unremarkable. The chest wall is remarkable for prior median sternotomy with intact sternal suture wires. The mediastinum is unremarkable. There are small mediastinal lymph nodes, however not pathologic by size criteria. The pericardium appears unremarkable. The pulmonary arteries are normal. The lung windows: Reveal no acute abnormalities. The central airways are patent. There is no abnormal pulmonary parenchymal mass, infiltrate, or pleural effusion. The cardiac chambers have normal atrioventricular and ventriculoarterial concordance, and systemic and pulmonary venous return. The cardiac chamber sizes are normal. The coronary arteries have normal origins and courses. There are mild to moderate coronary calcifications identified, though this study was not optimized for coronary artery evaluation. Known occluded SVG graft to the RCA. The FOY graft is widely patent and travels along the lateral border of the manubrium and travels 1.8 cm lateral to the sternum. The mid to distal segment of the LAD has no significant calcification and could be an ideal anastomotic site for FOY graft. VASCULAR WITH ADVANCED 3- D OFFLINE POST-PROCESSING:The aortic valve is trileaflet. The leaflets are free from calcifications. The aortic root is symmetric and normal in dimension, and is free from calcifications. The sinotubular junction is preserved. The ascending thoracic aorta and aortic arch is normal in course, caliber, and contour. The arch vessel branching pattern demonstrates a common trunk of the innominate and left common carotid artery. The imaged arch branch vessels are patent proximally. Of note: there is no calcification of the anterior ascending aorta. The descending thoracic aorta is normal in course and caliber with mild to moderate calcific atherosclerotic changes. There is no acute aortic pathology, such as dissection, intramural hematoma, or contained rupture. Shape Brick Molder dimensions of the thoracic aorta are as follows:*3.0 cm at the sinuses of Valsalva (measured [id number])*3.0 cm in the mid-ascending aorta*2.9 cm at the distal ascending aorta*2.6 cm at the mid-transverse arch*2.4 cm at the proximal descending thoracic aorta*2.0 cm at thediaphragmatic hiatus PROXIMITY OF THE CARDIOVASCULAR STRUCTURES TO THE STERNUM: The cardiovascular st ructures lie in close relationship to the sternum (<1 cm).*The left brachio- cephalic vein lies 0.65 cm behind the upper-manubrium sternum.*The aorta lies 2.75 cm behind the upper sternum.*The RV myocardium lies 1.2 cm behind the lower sternum. ABDOMEN:The limited images of the upper abdomen reveal no abnormalities of the imaged organs, except for surgical clips from prior cholecystectomy. IMPRESSION: 1. The FOY graft is widely patent and travels along the lateral border of the manubrium and travels 1.8 cm lateral to the sternum. The mid to distal segment of the LAD has no significant calcification and could be an ideal anastomotic site for FOY graft. 2. The thoracic aorta is normal in course, contour, and calibre. There is no evidence of acute aortic pathology, specifically, there is no dissection, intramural hematoma, or contained rupture. Quantitative dimension of the aorta are as described above. . 3. The cardiovascular structures lie in close relationship to the sternum (<1 cm), as described above. An addendum will be dictated regarding the non-vascular findings by the Stone Splitter Radiologist. Signed: Aashish Vidal MDReport Verified Date/Time: 12/02/2020 21:17:21 SARS-COV2/RT-PCR ([facility]) 2020-12-07 22:16:07 Test Item Value Reference Range Interpretation Comments SARS-COV2/RT-PCR (test code = Negative Negative [id number]) Negative result for this test determines that SARS-CoV-2 RNA was not present in the specimen above the Limit of Detection (LOD). However, Negative results do not preclude SARS-CoV-2 infection and should not be used as the sole basis for treatment or patient management decisions. Negative results must be combined with clinical observations, patient history, and epidemiological information. A false negative result may occur if a specimen is improperly collected, transported, or handled. A false negative result should be considered if patient's recent exposures or clinical presentation indicate that COVID-19 (SARS-CoV-2) is likely and diagnostic tests for other causes of illness are negative. Re-testing should be considered in cases of suspected false negatives.The limit of detection for this assay is 100 copies/mL.This SARS-CoV-2 test is a real-time RT_PCR test intended for the qualitative detection of nucleic acid from SARS-CoV-2 in a nasopharyngeal swab specimen collected from individuals suspected of COVID-19 by their healthcare provider.This test has not been Food and Drug Administration (FDA) cleared or approved. This is a modified version of an approved Emergency Use Authorization (EUA) and is in the process of review by the FDA. Once authorized by the FDA, the issued EUA will be effective until the declaration that circumstances exist justifying the authorization of the emergency use of in vitro diagnostic tests for detection and/or diagnosis of COVID-19 is terminated under Section 564(b)(2) of the Act or the EUA is revoked under Section 564(g) of the Act.Testing was performed using [employer] SARS-CoV-2 assay.Fact Sheet for Healthcare Providers:https://www.f4samurai.hui/jose raul/RT SARS-CoV-2 HCP Fact Sheet 51- 415599.pdfFact Sheet for Healthcare Patients:https://www.f4samurai.KineMed/jose raul/RT SARS-CoV-2 Patient Fact Sheet EN 51-137580T2.pdfHEMOGLOBIN [id number] 14:17:54 Test Item Value Reference Range Interpretation Comments HEMOGLOBIN A1C (BEAKER) (test code = 5.4 % 4.3-6.1 368) LIPID [id number] 13:15:17 Test Item Value Reference Range Interpretation Comments TRIGLYCERIDES (BEAKER) (test code = 226 mg/dL 540) CHOLESTEROL (BEAKER) (test code = 225 mg/dL 631) HDL CHOLESTEROL (BEAKER) (test code 51 mg/dL = 976) LDL CHOLESTEROL CALCULATED (BEAKER) 129 mg/dL (test code = 633) Triglyceride Reference Range: Low Risk <150 Borderline 150-199 High Risk 200-499 Very High Risk >=500Cholesterol Reference Range: Low Risk <200 Borderline 200-239 High Risk >240HDL Cholesterol Reference Range: Low Risk >=60 High Risk <40LDL Cholesterol Reference Range: Optimal <100 Near Optimal 100-129 Borderline 130-159 High 160-189 Very High >=190 Creative Writing English Professor ID - DBCOMPREHENSIVE METABOLIC [id number] 13:15:12 Test Item Value Reference Range Interpretation Comments TOTAL PROTEIN 7.1 gm/dL 6.0-8.3 (BEAKER) (test code = 770) ALBUMIN (BEAKER) 4.1 g/dL 3.5-5.0 (test code = 1145) ALKALINE PHOSPHATASE 103 U/L 40-150 (BEAKER) (test code = 346) BILIRUBIN TOTAL 0.5 mg/dL 0.2-1.2 (BEAKER) (test code = 377) SODIUM (BEAKER) (test 139 meq/L 136-145 code = 381) POTASSIUM (BEAKER) 4.3 meq/L 3.5-5.1 (test code = 379) CHLORIDE (BEAKER) 104 meq/L 98-107 (test code = 382) CO2 (BEAKER) (test 26 meq/L 22-29 code = 355) BLOOD UREA NITROGEN 13 mg/dL 7-21 (BEAKER) (test code = 354) CREATININE (BEAKER) 1.12 mg/dL 0.57-1.25 (test code = 358) GLUCOSE RANDOM 100 mg/dL 70-105 (BEAKER) (test code = 652) CALCIUM (BEAKER) 9.2 mg/dL 8.4-10.2 (test code = 697) AST (SGOT) (BEAKER) 17 U/L 5-34 (test code = 353) ALT (SGPT) (BEAKER) 14 U/L 6-55 (test code = 347) EGFR (BEAKER) (test 63 mL/min/1.73 ESTIMA WALDO GFR IS code = 1092) sq m NOT ACCURATE CREATININE CLEARANCE IN PREDICTING GLOMERULAR FILTRATION RATE . ESTIMATED GFR I S NOT APPLICABLE FOR DIALYSIS PATIEN TS. Creative Writing English Professor ID - [id number] 13:15:12 Test Item Value Reference Range Interpretation Comments MAGNESIUM (BEAKER) (test code = 2.2 mg/dL 1.6-2.6 627) Creative Writing English Professor ID - [id number] 13:04:09 Test Item Value Reference Range Interpretation Comments PARTIAL THROMBOPLASTIN TIME 22.9 seconds 22.5-36.0 (BEAKER) (test code = 760) PROTHROMBIN [id number] 13:03:30 Test Item Value Reference Range Interpretation Comments PROTIME (BEAKER) 12.6 seconds 11.9-14.2 (test code = 759) INR (BEAKER) (test 0.96 See_Comment [Automat ed message] code = 370) The system Impraise generated this result transmitted ref erence range: <=5.90. The reference range was not used to int erpret this result as normal/abnormal . RECOMMENDED COUMADIN/WARFARIN INR THERAPY RANGESSTANDARD DOSE: 2.0 - 3.0 Includes: PROPHYLAXIS for venous thrombosis, systemic embolization; TREATMENT for venous thrombosis and/or pulmonary embolus.HIGH RISK: Target INR is 2.5-3.5 for patients with mechanical heart valves.CBC W/PLT COUNT & AUTO [id number] 13:00:31 Test Item Value Reference Range Interpretation Comments WHITE BLOOD CELL COUNT (BEAKER) 10.0 K/ L 3.5-10.5 (test code = 775) RED BLOOD CELL COUNT (BEAKER) 4.75 M/ L 4.63-6.08 (test code = 761) HEMOGLOBIN (BEAKER) (test code = 15.3 GM/DL 13.7-17.5 410) HEMATOCRIT (BEAKER) (test code = 47.5 % 40.1-51.0 411) MEAN CORPUSCULAR VOLUME (BEAKER) 100.0 fL 79.0-92.2 H (test code = 753) MEAN CORPUSCULAR HEMOGLOBIN 32.2 pg 25.7-32.2 (BEAKER) (test code = 751) MEAN CORPUSCULAR HEMOGLOBIN CONC 32.2 GM/DL 32.3-36.5 L (BEAKER) (test code = 752) RED CELL DISTRIBUTION WIDTH 14.3 % 11.6-14.4 (BEAKER) (test code = 412) PLATELET COUNT (BEAKER) (test 260 K/CU MM 150-450 code = 756) MEAN PLATELET VOLUME (BEAKER) 9.9 fL 9.4-12.4 (test code = 754) NUCLEATED RED BLOOD CELLS 0 /100 WBC 0-0 (BEAKER) (test code = 413) NEUTROPHILS RELATIVE PERCENT 67 % (BEAKER) (test code = 429) LYMPHOCYTES RELATIVE PERCENT 19 % (BEAKER) (test code = 430) MONOCYTES RELATIVE PERCENT 9 % (BEAKER) (test code = 431) EOSINOPHILS RELATIVE PERCENT 4 % (BEAKER) (test code = 432) BASOPHILS RELATIVE PERCENT 1 % (BEAKER) (test code = 437) NEUTROPHILS ABSOLUTE COUNT 6.69 K/ L 1.78-5.38 H (BEAKER) (test code = 670) LYMPHOCYTES ABSOLUTE COUNT 1.90 K/ L 1.32-3.57 (BEAKER) (test code = 414) MONOCYTES ABSOLUTE COUNT (BEAKER) 0.91 K/ L 0.30-0.82 H (test code = 415) EOSINOPHILS ABSOLUTE COUNT 0.39 K/ L 0.04-0.54 (BEAKER) (test code = 416) BASOPHILS ABSOLUTE COUNT (BEAKER) 0.06 K/ L 0.01-0.08 (test code = 417) IMMATURE GRANULOCYTES-RELATIVE 0 % 0-1 PERCENT (BEAKER) (test code = 2801) [id number] 14:32:46 Test Item Value Reference Range Interpretation Comments POC-CREATININE 1.1 mg/dL 0.6-1.3 : TESTED AT [facility] ([facility]) (test [address] [facility] code = 1859) [place], [address]: Creative Writing English Professor/Techni angelique ID = [id number] for Valeriano Sanchez POC-EGFR ([facility]) 64 mL/min/1.73M2 (test code = 1860)
[2022-07-20 11:38] LABS: Hematocrit 40.8 % (39.6-49.0); Lymphocytes % 30.6 % (15.3-44.8); MPV 7.7 fL (7.6-11.3); RBC Red Blood Cell Count 4.16 M/uL (4.33-5.43)
[2022-07-20] MEDS ORDERED: ONDANSETRON 4 MG/2 ML VIAL ONE (11:50)
[2022-07-20] MEDS ORDERED: KETOROLAC 30 MG/ML INJ ONE (11:50)
[2022-07-20 11:56] LABS: Potassium 3.8 mEq/L (3.5-5.1)
[2022-07-20 12:04] LABS: Specific Gravity 1.015 (1.005-1.030); Urine Bacteria <20 /HPF (<20); Urine Bilirubin NEGATIVE (Negative); Urine Blood 1+ (Negative); Urine Clarity Clear (Clear); Urine Color Yellow (Yellow); Urine Glucose NEGATIVE (Negative); Urine Mucus 2+ /HPF (None Seen); Urine Protein 1+ (Negative); Urine RBC 21-50 /HPF (None Seen); Urine Urobilinogen Normal (Normal)
--- NOTE | 2022-07-20 12:25 | RAD REPORT ---
EXAM DESCRIPTION: CT - Abdomen Pelvis Wo Contrast - 07/20/2022 12:06 pm CLINICAL HISTORY: Abdominal pain /right flank pain COMPARISON: 2021 TECHNIQUE: Computed axial tomography of the abdomen and pelvis was obtained. IV and oral contrast we re not requested. All CT scans are performed using dose optimization technique as appropriate and may include automated exposure control or mA/KV adjustment according to patient size. FINDINGS: The evaluation of solid organs, vessels and bowel is limited secondary to the lack of con trast administration. Moderate right hydronephrosis. Right ureter is dilated. 7 millimeter calculus present within the dist al right ureter. Renal calculus is not seen. Cholecystectomy Liver, spleen, pancreas and adrenals grossly normal. Diverticula stem from the colon without evidence of diverticulitis IMPRESSION: 7 millimeter calculus distal right ureter resulting in moderate right hydronephrosis
--- NOTE | 2022-07-20 12:56 | ER ---
Nurse's Notes [facility] Name: Carmelo Davis Age: 82 yrs Sex: Male : 1940 Arrival Date: 07/20/2022 Time: 10:58 Bed 23 Private MD: Diagnosis: Kidney Stone/ Calculus in urethra Presentation: 07/20 11:11 Chief complaint: Patient states: hx of kidney stone, pain to right flank started 9 am. iw Coronavirus screen: At this time, the client does not indicate any symptoms associated with coronavirus-19. Ebola Screen: Patient negative for fever greater than or equal to 101.5 degrees Fahrenheit, and additional compatible Ebola Virus Disease symptoms Patient denies exposure to infectious person. Patient denies travel to an Ebola-affected area in the 21 days before illness onset. No symptoms or risks identified at this time. Initial Sepsis Screen: Does the patient meet any 2 criteria? No. Patient's initial sepsis screen is negative. Does the patient have a suspected source of infection? No. Patient's initial sepsis screen is negative. Risk Assessment: Do you want to hurt yourself or someone else? Patient reports no desire to harm self or others. Onset of symptoms was July 20, 2022. 11:11 Method Of Arrival: Ambulatory iw 11:11 Acuity: RAVEN 3 iw Triage Assessment: 13:00 General: Appears in no apparent distress. Behavior is calm, cooperative. iw Historical: - Allergies: 11:11 CORN CONTAINING PRODUCTS; iw 11:11 Gluten Protein; iw 11:11 Iodine; iw 11:11 Milk/dairy products; iw 11:11 Wheat/glutens; iw - PMHx: 11:11 Myocardial infarction; x2; iw - Immunization history:: Adult Immunizations unknown. - Social history:: Smoking status: unknown. Screenin:50 [facility] ED Fall Risk Assessment (Adult) History of falling in the last 3 months, iw including since admission. Abuse screen: Denies threats or abuse. Denies injuries from another. Nutritional screening: No deficits noted. Tuberculosis screening: No symptoms or risk factors identified. Assessment: 13:00 General: Appears in no apparent distress. comfortable, Behavior is calm, cooperative. iw Pain: Complains of pain in anterior aspect of right lateral abdomen and posterior aspect of right lateral abdomen. Respiratory: Respiratory effort is even, unlabored, Respiratory pattern is regular. GI: GI: Abd is soft X 4 quads. Vital Signs: 11:27 BP 102 / 48; Pulse 55; Resp 16; Temp 97.6; Pulse Ox 100% on R/A; Weight 68.04 kg; zm Height 5 ft. 7 in. ; 11:27 Body Mass Index 23.49 (68.04 kg, 170.18 cm) zm ED Course: 11:01 Patient arrived in ED. mr 11:11 Triage completed. iw 11:12 Arm band placed on. iw 11:13 Hugh Hines MD is Attending Physician. bs3 11:24 Inserted saline lock: 20 gauge in left antecubital area, using aseptic technique. Blood zm collected. 11:26 BMP Sent. zm 11:26 CBC with Diff Sent. zm 12:08 CT Abd/Pelvis - Without Contrast In Process Unspecified. EDMS 12:15 Nuha Hendrix, JADA is Primary Nurse. iw 12:55 Armando Loyd MD is Referral Physician. bs3 13:00 Patient has correct armband on for positive identification. iw 13:51 No provider procedures requiring assistance completed. IV discontinued, intact, iw bleeding controlled, No redness/swelling at site. Pressure dressing applied. Administered Medications: 12:15 Drug: Ketorolac IVP 15 mg Route: IVP; Site: left antecubital; iw 13:00 Follow up: Response: No adverse reaction; Pain is decreased iw 12:15 Drug: Ondansetron IVP 4 mg Route: IVP; Site: left antecubital; iw 12:30 Follow up: Response: No adverse reaction iw 12:57 Drug: Rocephin IV 1 grams Route: IV; Rate: 1 bolus; Site: left antecubital; iw 13:15 Follow up: IV Status: Completed infusion iw 12:57 Drug: Tamsulosin PO Extended Release 24 hour Capsule 0.4 mg Route: PO; iw 13:30 Follow up: Response: No adverse reaction iw Medication: 13:00 VIS not applicable for this client. iw Outcome: 12:55 Discharge ordered by . bs3 13:52 Discharged to home ambulatory. iw 13:52 Condition: good 13:52 Discharge instructions given to patient, Instructed on discharge instructions, follow up and referral plans. medication usage, Demonstrated understanding of instructions, follow-up care, medications, Prescriptions given X 2. 13:53 Patient left the ED. iw Signatures: Dispatcher [employer] Isabela Velazquez Irene, Xenia Ohara RN, Brandon, MD MD bs3
--- NOTE | 2022-07-20 12:56 | EDPHYS ---
Physician Documentation [facility] Name: Carmelo Davis Age: 82 yrs Sex: Male : 1940 Arrival Date: 07/20/2022 Time: 10:58 Bed 23 Private MD: ED Physician Hugh Hines HPI: 07/20 11:17 This 82 yrs old Male presents to ER via Ambulatory with complaints of bs3 Possible Kidney Stone. 11:17 52-year-old male history of [place] history of kidney stone approximately 50 years ago bs3 presents with right lower abdominal pain started suddenly at 9 AM he has associated nausea and vomiting no fevers or chills no urinary symptoms he took gabapentin but thinks he vomited up no chest pain shortness of breath no numbness or weakness in extremities. Historical: - Allergies: 11:11 CORN CONTAINING PRODUCTS; iw 11:11 Gluten Protein; iw 11:11 Iodine; iw 11:11 Milk/dairy products; iw 11:11 Wheat/glutens; iw - PMHx: 11:11 Myocardial infarction; x2; iw - Immunization history:: Adult Immunizations unknown. - Social history:: Smoking status: unknown. ROS: 11:17 Constitutional: Negative for fever, chills bs3 11:17 All other systems are negative. Exam: 11:17 Constitutional: This is a well developed, well nourished patient who is awake, alert, bs3 and in no acute distress. Head/Face: Normocephalic, atraumatic. Eyes: Pupils equal round and reactive to light, extra-ocular motions intact. Lids and lashes normal. ENT: mmm, no posterior phyarngeal erythema Chest/axilla: Normal chest wall appearance and motion. Nontender with no deformity. No lesions are appreciated. Cardiovascular: Regular rate and rhythm with a normal S1 and S2. symmetric pulses in upper extremities Respiratory: Lungs have equal breath sounds bilaterally, clear to auscultation, no respiratory distress Abdomen/GI: Soft, non-tender, no rebound or guarding Back: No spinal tenderness. Right cva tenderness MS/ Extremity: Pulses equal, no cyanosis. Neurovascular intact. Full, normal range of motion. Neuro: Awake and alert, GCS 15, oriented to person, place, time, and situation. Cranial nerves II-XII grossly intact. Motor strength 5/5 in all extremities. Sensory grossly intact. Vital Signs: 11:27 BP 102 / 48; Pulse 55; Resp 16; Temp 97.6; Pulse Ox 100% on R/A; Weight 68.04 kg; zm Height 5 ft. 7 in. ; 11:27 Body Mass Index 23.49 (68.04 kg, 170.18 cm) zm MDM: 11:13 Patient medically screened. bs3 11:17 Differential diagnosis: AAA, gastritis, Pyelonephritis, Ureterolithiasis, urinary tract bs3 infection. Data reviewed: vital signs, nurses notes. 11:17 ED course: pt with right lower abd pain, will eval for kidney stone, given age if bs3 workup neg, will eval for aaa/dissection, although less likely given clinical hx. . 12:10 Consideration of Admission/Observation Escalation of care including bs3 admission/observation considered. Independent interpretation of the following test(s) in the Emergency Department CT Scan: My interpretation is Kidney stone with hydroureter. ED course: Patient afebrile here he has no leukocytosis but his urine may be infected we will have a shared decision made conversation with the patient. 12:53 ED course: pt . bs3 12:55 ED course: I had a long conversation with the patient he want to try to go home he sees bs3 Dr. Loyd and will follow-up with Dr. Loyd very strict return precautions were given. 07/20 11:17 Order name: CBC with Diff; Complete Time: 12:05 bs3 07/20 11:17 Order name: BMP; Complete Time: 12:05 bs3 07/20 11:17 Order name: Urinalysis w/ reflexes; Complete Time: 12:05 bs3 07/20 12:08 Order name: Urine Culture EDKS 07/20 11:17 Order name: CT Abd/Pelvis - Without Contrast; Complete Time: 12:28 bs3 Administered Medications: 12:15 Drug: Ketorolac IVP 15 mg Route: IVP; Site: left antecubital; iw 13:00 Follow up: Response: No adverse reaction; Pain is decreased iw 12:15 Drug: Ondansetron IVP 4 mg Route: IVP; Site: left antecubital; iw 12:30 Follow up: Response: No adverse reaction iw 12:57 Drug: Rocephin IV 1 grams Route: IV; Rate: 1 bolus; Site: left antecubital; iw 13:15 Follow up: IV Status: Completed infusion iw 12:57 Drug: Tamsulosin PO Extended Release 24 hour Capsule 0.4 mg Route: PO; iw 13:30 Follow up: Response: No adverse reaction iw Disposition Summary: 07/20/22 12:55 Discharge Ordered Location: Home bs3 Problem: new bs3 Symptoms: have improved bs3 Condition: Stable bs3 Diagnosis - Kidney Stone/ Calculus in urethra bs3 Followup: bs3 - With: Armando Loyd MD - When: 2 - 3 days - Reason: Re-evaluation by your physician Discharge Instructions: - Discharge Summary Sheet bs3 - Kidney Stones, [id number] bs3 Forms: - Medication Reconciliation Form bs3 - Thank You Letter bs3 - Antibiotic Education bs3 - Prescription Opioid Use bs3 Prescriptions: - tamsulosin 0.4 mg Oral capsule - take 1 capsule by ORAL route At bedtime for 14 days; 14 capsule; Refills: 0, bs3 Product Selection Permitted - Zofran 4 mg Oral Tablet - take 1 tablet by ORAL route 3 times per day As needed; 12 tablet; Refills: 0, bs3 Product Selection Permitted - cefpodoxime 100 mg Oral Tablet - take 1 tablet by ORAL route every 12 hours for 10 days take with food; 20 bs3 tablet; Refills: 0, Product Selection Permitted Signatures: Dispatcher [employer] Nuha Ayoub, RN RN Hugh Graves MD MD bs3
[2022-07-20] MEDS ORDERED: IBUPROFEN 400 MG TAB ONE (12:57)
[2022-07-20] MEDS ORDERED: TAMSULOSIN 0.4 MG SR CAP ONE (12:57)
[2022-07-20] MEDS ORDERED: CEFTRIAXONE 1000 MG/VIAL ONE (12:58)
[2022-07-20 14:13] VITALS: BP 102/48; TEMP 97.6; O2SAT 100
== END 2022-07-20 13:53 | disposition home or self-care (01) ==
LOC: ER 10:58
DX: N20.0 Calculus of kidney (principal); N21.1 Calculus in urethra; Z91.011 Allergy to milk products; Z91.018 Allergy to other foods
CPT/HCPCS: 96365; 87088; 85025; 81001; 87086; 80048; 36415; 74176; 96375; 99284; J2405; J0696

== ENCOUNTER 2022-08-16 10:22 | Day surgery (SDC) | payer OTHER ==
--- NOTE | 2022-08-10 13:34 | RAD REPORT ---
EXAM DESCRIPTION: [facility]08/10/2022 1:22 pm CLINICAL HISTORY: Pre op pending ureteroscopy. History of cardiac bypass COMPARISON: Chest Pa And Lat (2 Views) dated 11/06/2020; Abdomen 1 View (KUB) dated 05/14/2018; Abdom en 1 View (KUB) dated 05/10/2018; Chest Single View dated 05/10/2018 TECHNIQUE: PA and lateral views of the chest. FINDINGS: The lungs are clear. No pneumothorax or effusion. The cardiomediastinal contours are unre markable. Sequelae of prior median sternotomy again seen. IMPRESSION: No acute cardiopulmonary process.
--- NOTE | 2022-08-11 17:43 | EKG ---
Test Date: 2022-08-10 Test Time: 13:09:25 [employer] Research Associate: MAIRA MEASUREMENT RESULTS: Intervals: Rate: 64 NE: 152 QRSD: 136 QT: 406 QTc: 418 [place]: P: 45 NE: 152 QRS: -33 T: 10 INTERPRETIVE STATEMENTS: Normal sinus rhythm Left axis deviation Right bundle branch block Minimal voltage criteria for LVH, may be normal variant Inferior infarct, age undetermined Anterolateral infarct, age undetermined Abnormal ECG Compared to ECG 11/06/2020 10:22:08 No significant changes Electronically Signed On 08-11-22 17:39:54 CDT by Joseluis Luis
[2022-08-16] MEDS ORDERED: Ringers Lactate 1,000 ML IV ONE (10:49)
[2022-08-16] MEDS ORDERED: LIDOCAINE 2% MPF 5 ML VIAL ONE (12:00)
[2022-08-16] MEDS ORDERED: MIDAZOLAM HCL 2 MG/2 ML INJ ONE (12:00)
[2022-08-16] MEDS ORDERED: ONDANSETRON 4 MG/2 ML VIAL ONE (12:00)
[2022-08-16] MEDS ORDERED: FENTANYL CITR 250 MCG/5 ML ONE (12:01)
[2022-08-16] MEDS ORDERED: dexAMETHasone 4 MG/ML VIAL ONE (12:01)
[2022-08-16] MEDS ORDERED: propofoL 200 MG/20 ML VIAL IV ONE (12:01)
[2022-08-16] MEDS ORDERED: ROCURONIUM 50 MG/5 ML VIAL IV ONE (12:02)
[2022-08-16] MEDS ORDERED: SUGAMMADEX SODIUM 200 MG/2 ML VIAL IV ONE (12:02)
[2022-08-16] MEDS ORDERED: GENTAMICIN 80 MG/100 ML BAG 160 MG/200 ML BAG IV ONE (12:16)
[2022-08-16] MEDS: CLINDAMYCIN 600MG/D5W 50 ML IV ONE ×3 (12:25→12:51)
[2022-08-16] MEDS ORDERED: EPHEDRINE SULF 50 MG/ML VIAL ONE (12:48)
[2022-08-16 13:37] VITALS: O2SAT 100
[2022-08-16] MEDS ORDERED: CODEINE 30MG/APAP 300MG TAB PO PRN (13:46)
[2022-08-16] MEDS ORDERED: PHENAZOPYRIDINE 100MG TAB PO ONE ×2 (13:46→14:37)
--- NOTE | 2022-08-16 14:16 | RAD REPORT ---
EXAM DESCRIPTION: RAD - Urethrocystogrphy Retrograde - 08/16/2022 2:00 pm CLINICAL HISTORY: RIGHT STENT PLACEMENT COMPARISON: None available. FINDINGS: Eight Images were sent to PACS, documenting needle positions during the fluoroscopically g uided ureteral stent placed no procedure. No radiologist was available for the procedure, nor will an y image interpretation he provided. Please refer to the procedural report for additional details. Fluoroscopy time: 0.7 minutes. Skin dose: 3.5 mGy. IMPRESSION: Documentation of fluoroscopy utilization as above.
--- NOTE | 2022-08-16 15:04 | OP ---
Surgeon: BHAVANA LAGUNAS Preoperative Diagnosis: Right distal ureterolithiasis. Postoperative Diagnoses: 1.Right distal ureterolithiasis. 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 Principal Procedures: 1.Cystoscopy. 2.Right retrograde pyelography. 3.Right ureteroscopy with laser lithotripsy. 4.Right ureteroscopic stone basketing. 5.Right 6-Ivorian by 24 cm ureteral stent placement. 6.Cystoscopy and urethral dilation over a wire. Indication For Procedure: Mr. Davis is an 82-year-old gentleman, who was seen in the emergency d [facility] at the end of June with an obstructing 7 mm mid distal ureteral calculus. Despite this, he had no further pain after the initial presentation to the emergency department, and despite straining his urine faithfully, he never passed any stone. He was counseled that the likelihood of the stone was persistently present within his ureter was indeed his likely reality and recommended for operativ e intervention. Procedure In Detail: The patient was consented in the preoperative holding area before being transfe rred to the operative suite where general anesthesia was induced. He was given clindamycin 600 mg an d gentamicin 2-3 mg/kg IV antimicrobial prophylaxis. Pneumo boots were provided for DVT prophylaxis. He was placed in the lithotomy position, padded and secured to the table appropriately. His genita edin were prepped with Hibiclens and he was draped in standard fashion. The case was begun using a 22 -Ivorian rigid cystoscope to try to enter the urethra. There was some mild meatal stenosis, which I w as able to dilate using the obturator for the 22-Ivorian scope. I was then able to navigate via the u rethra until the bulbar urethra where there was some mild stricture disease that prohibited passage o f the scope. As a result, I passed a Bentson guidewire via the scope and the stricture disease and i nto his bladder. Over the wire, I utilized sequential dilators to dilate the stricture disease from 18-Ivorian to 24-Ivorian with relative ease. I then removed the wire and dilator and surveyed the villareal irish created which was patent beyond the prostatic urethra and into his bladder. The bladder was deco mpressed of fluid and urine, and there were no obvious mucosal lesions, foreign bodies, or stones. T he ureteral orifices were orthotopic in location and the right ureteral orifice was stenotic and yomaira ulated using the tip of the Sensor wire in order to insert the 5-Ivorian ureteral access catheter. A retrograde pyelogram was then performed after the Sensor wire was removed leaving the 5-Ivorian ureter al access catheter in place. Right retrograde pyelography: Using a 70:30 mixture of Omnipaque and saline, contrast was injected via the lumen of the 5-Ivorian ur eteral access catheter and did propagate up the distal ureter to a point of filling defect and then a transition of the ureter to becoming markedly dilated all the way into the proximal ureter before en tering the renal pelvis where there was some [id number] pelviectasis and some caliectasis. As a result, it was likely there was some obstruction from the stone; so I then passed the Sensor wire v ia the 5-Ivorian ureteral access catheter and was able to navigate it into the collecting system as ob served fluoroscopically. I then passed a dual-lumen catheter over the Sensor wire in order to dilate the distal ureter and ureteral orifice up to the point of filling defect and obstruction seen fluoro scopically. I then removed the dual-lumen catheter and utilized the semi-rigid ureteroscope to trave rse the urethra and into the bladder and then into the right ureteral orifice where I navigated into the mid distal ureter to the point of obstruction and observed the previously seen 7 mm ureteral calc ulus that appeared to be uric acid likely in composition. Because the stone was free floating at thi s point, I attempted to basket it using a 1.9-Ivorian 0 tip Nitinol basket, but there was a point of u reteral stricture/stenosis that was mild distal to this in the distal ureter that I had to navigate bhupendra triana using the semi-rigid ureteroscope and pressurized saline. The stone did get hung up at that po int and would not pass within the basket. So I had to utilize a 200 nm laser fiber and power setting of 0.8 joules and 8 hertz to fragment the stone within the basket to fragment small enough to be abl e to remove the stone material and the basket. Once this was freed and removed, I then surveyed back into the ureter for any residual stone fragments, and I found 1 additional fragment that was likely 3-4 mm in size and fragmented this also using the laser before using the basket again to grasp and re move the final fragment that was probably 2 mm in diameter. In the end, the portion of the ureter wh ere the stone became impacted was slightly traumatized; so I then removed the ureteroscope and back-l oaded the cystoscope over the indwelling safety wire before passing a 6-Ivorian by 24 cm double-J uret eral stent with a coil observed fluoroscopically in the renal pelvis and 1 cystoscopically performed in the bladder. I then decompressed the patient's bladder of fluid and urine, and even I removed arabella e of the stone fragments that were now in his bladder. The patient was then taken out of the lithoto my position, awakened from general anesthesia, transferred to a stretcher, and then transferred to re covery room in good condition. Complications: None. Discharge Disposition: Given the mild mucosal urethral stricture disease noted in the distal ureter, I would like for him to keep the ureteral stent for at least 3 weeks before removing it in the offic e cystoscopically. PRISCILLA/LYDIA Voice ID: [id number] Report ID: [id number]
[2022-08-16 15:17] VITALS: BP 149/68; TEMP 96
== END 2022-08-16 15:14 | disposition home or self-care (01) ==
LOC: OR 10:22
PROVIDERS: ATTEND Urology
PROC: 0TC68ZZ Extirpation of Matter from Right Ureter, Via Natural or Artificial Opening Endoscopic (ICD-10-PCS; principal; 2022-08-16 11:30)
DX: N20.1 Calculus of ureter (principal); N20.0 Calculus of kidney; N35.912 Unspecified bulbous urethral stricture, male
CPT/HCPCS: 52356; 93005; 87088; 87086; 88300; 82360; 71046; 74450; 51610; J2704; J1100; J2001; J2250; J3010; J2405; J7120; J1580

== ENCOUNTER 2023-08-17 06:50 | Day surgery (SDC) | payer OTHER ==
[2023-08-16 10:28] LABS: Absolute Basophils 0.1 K/uL (0-0.5); Absolute Eosinophils 0.2 K/uL (0-0.5); Absolute Lymphocytes (CBC) 1.6 K/uL (0.7-4.9); Absolute Monocytes 0.9 K/uL (0.1-1.3); Basophils % 0.9 % (0-1.3); Eosinophils % 2.6 % (0-4.4); Hematocrit 41.3 % (39.6-49.0); Hemoglobin 13.7 g/dL (13.6-17.9); Lymphocytes % 23.8 % (15.3-44.8); MCH 32.5 pg (27.0-35.0); MCHC 33.2 g/dL (32.0-36.0); MPV 7.7 fL (7.6-11.3); Monocytes % 13.1 % (3.3-12.3); Neutrophils % 59.6 % (41.7-73.7); Nucleated Red Blood Cells % 0.2 % (0-0); Platelets 314 thou/uL (152-406); RBC Red Blood Cell Count 4.22 M/uL (4.33-5.43); Red Cell Distribution Width 14.5 % (12.1-15.2)
[2023-08-16 10:43] LABS: Anion Gap 5.6 mEq/L (5.0-15.0); Potassium 4.6 mEq/L (3.5-5.1)
[2023-08-17] MEDS: Ringers Lactate 1,000 ML IV ONE (07:40)
[2023-08-17] MEDS ORDERED: CLINDAMYCIN 900MG/D5W 0 MG/0 ML IVPB IV ONE (07:48)
[2023-08-17] MEDS: CLINDAMYCIN 600MG/D5W 50 ML IV ONE (08:45)
[2023-08-17] MEDS: LIDOCAINE HCL/EPINEPHRINE 20 ML MDV ONE (08:50)
[2023-08-17] MEDS ORDERED: EPHEDRINE SULF 50 MG/ML VIAL ONE (09:04)
[2023-08-17 12:26] VITALS: BP 147/73; TEMP 96.8; O2SAT 97
--- NOTE | 2023-08-17 14:11 | EKG ---
Test Date: 2023-08-16 Test Time: 10:16:22 Edge Inker Uppers: CD MEASUREMENT RESULTS: Intervals: Rate: 62 FL: 148 QRSD: 154 QT: 490 QTc: 497 [place]: P: 26 FL: 148 QRS: -44 T: 61 INTERPRETIVE STATEMENTS: Sinus rhythm with occasional premature ventricular complexes Left axis deviation Right bundle branch block Inferior infarct, age undetermined Anterolateral infarct, age undetermined Abnormal ECG Compared to ECG 08/16/2023 10:15:48 Ventricular premature complex(es) now present Sinus bradycardia no longer present Myocardial infarct finding still present Electronically Signed On 08-17-23 14:07:30 CDT by Joseluis Luis
--- NOTE | 2023-08-21 12:06 | OP ---
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 Procedures: 1. Complete excision of right lower lip squamous cell carcinoma. 2. Right lower lip complex closure of wound defect. Anesthesia: General LMA anesthesia was administered. I also infiltrated approximately 10 mL of 1% lidocaine with 1:100,000 epinephrine at the excision site. Specimens: Right lower lip specimen obtained. Frozen section analysis of the medial border from 12 to 6 o'clock was taken and found to be ulcerative tissue, but no evidence of residual squamous cell carcinoma. Complete specimen sent for permanent section. Estimated Blood Loss: Less than 2 mL. Findings: Large ulcerative right lower lip neoplasm measuring 2.5 cm in diameter. Complete excised diameter was 3.0 cm as an additional 0.5 cm of tissue had to be removed with the cancer. Complications: None. Disposition: Stable. The patient tolerated the procedure well. Indication For Procedure: Patient is a pleasant 83-year-old male, who presented to my outpatient clinic with an enlarging neoplasm involving the right lower lip. In-office biopsy results showed well-differentiated squamous cell carcinoma. These were indications to bring the patient to operative suite for complete excision and reconstruction of the right lower lip. He understood. All questions were answered. Risks versus benefits and complications were explained in detail and a consent form signed which was placed in the chart. Description Of Procedure: Patient was transferred from the preoperative holding area to the operative suite by Department of Anesthesia, placed on the operating room table supine, sedated, and an LMA was placed. I infiltrated approximately 10 mL of 1% lidocaine with 1:100,000 epinephrine at the excision site. The lesion was completely removed, which measured 2.5 cm. I marked around the border of the lesion and then I measured out approximately 0.5 cm from the border of the lesion circumferentially. Frozen section analysis revealed inflammation of the medial border, but no evidence of squamous cell carcinoma,thus I proceeded to close the wound defect. The wound defect was through and through and included the vermilion border. I reapproximated the vermilion border initially with a 4-0 Prolene stitch. I then reapproximated the subcutaneous and mucosal edges with 4-0 Monocryl in a simple interrupted fashion. I then reapproximated the surface of the mucosa and epidermal layer with 4-0 Monocryl in a continuous running fashion and extending below the vermilion border with the 4-0 Monocryl in a simple interrupted and continuous running fashion. The complete closure length measured 6.2 cm. Ointment and the dressing were placed. Patient tolerated the procedure well. Will be discharged to home on antibiotic and analgesic medication. Will follow up in 1 or 2 weeks or sooner, if needed. KALEB/LYDIA Voice ID: [id number] Report ID: [id number] SERENA
== END 2023-08-17 11:48 | disposition home or self-care (01) ==
LOC: OR 06:50
PROVIDERS: ATTEND Otolaryngology Facial Plastic Surgery
PROC: 0CB10ZX Excision of Lower Lip, Open Approach, Diagnostic (ICD-10-PCS; principal; 2023-08-17 08:00)
DX: C44.02 Squamous cell carcinoma of skin of lip (principal)
CPT/HCPCS: 11643; 93005; 85025; 80048; 36415; 88331; 88305; J7120